=== PATIENT | female | born 1950 | race Caucasian/White ===

== ENCOUNTER → 2017-10-05 07:39 | Outpatient (CLI) | payer MEDICARE, OTHER, SELFPAY ==
[2017-10-05 09:00] LABS: Cholesterol 210 mg/dL (140-199); HDL Cholesterol 57 mg/dL (40-60); LDL Cholesterol Calculated 122 mg/dL (<100); Triglycerides 154 mg/dL (35-150)
== END ==
PROVIDERS: PCP Internal Medicine; Visit Provider Internal Medicine
DX: E78.5 Hyperlipidemia, unspecified (principal)
CPT/HCPCS: 36415; 80061

== ENCOUNTER 2018-04-03 07:12 | Day surgery (SDC) | payer MEDICARE, OTHER, SELFPAY ==
--- NOTE | 2018-04-03 | PATH_ITS ---
[facility] Accession Number: [id number] . 01 Material submitted: . RECTAL POLYP . 02 Diagnosis: Rectum, Polyp, Biopsy: Tubular adenoma. MRV/04/04/2018 . 02 Electronically signed: . Blanca Herrera MD, Pathologist NPI- [id number] . 01 Gross description: . Received one formalin-filled container labeled with the patient's name and labeled rectal polyp. The specimen consists of a 0.3 cm portion of tissue, entirely submitted in one cassette. (DC:[id number]) /FRR . 02 Pathologist provided ICD-10: D12.8 . 02 CPT . 685640 Performed at: 01 [facility] [place] [address] [id number] MD Seven Goff MD Phone: [phone] Performed at: 02 [facility] [place] [address] [place], [place] [id number] MD Blanca Herrera MD Phone: [phone]
[2018-04-03 07:30] VITALS: BP 108/74; PULSE 87; RESP 16; TEMP 36.9; O2SAT 94; BMI 27.4
--- NOTE | 2018-04-03 07:38 | PM.HP.1 ---
History of Present Illness Date Patient Seen: 04/03/18 Chief complaint: [id number] Colonscopy Narrative: 67-year-old female average risk for colon cancer here for repeat screening. Last colonoscopy performed 2005 in [place] Patient History Surgical History History of tonsillectomy Family History Father Heart disease High cholesterol Mother Stroke Social History household members: none Family & Social History Family History Father Heart disease High cholesterol Mother Stroke Meds Home Medications Medication Instructions Recorded Confirmed Type diazepam [Valium] 5 mg PO PRN PRN #30 tab 08/11/16 Rx aspirin #0 06/07/17 History calcium carbonate [Tums Freshers] #0 06/07/17 History multivitamin [Multiple Vitamins] #0 06/07/17 History omega 0-wnv-ptp-fish oil [Fish Oil] #0 06/07/17 History Allergies Allergy/AdvReac Type Severity Reaction Status Date / Time No Known Allergies Allergy Uncoded 06/13/17 12:39 Exam Narrative Exam Narrative: General: Patient is well developed, not in apparent distress Cardiovascular: Regular rate and rhythm, no murmurs, rubs, or gallops; no evidence of edema; no palpable abdominal aortic aneurysm Gastrointestinal: Normoactive bowel sounds, soft, nontender, nondistended, no rebound tenderness, no hepatosplenomegaly, no evidence of hernia Assessment & Plan Plan: Assessment/Plan Narrative: 67-year-old female average risk for colon cancer here for repeat screening. Last colonoscopy performed 2005 Regarding the procedure(s), the risks and potential complications, benefits, and alternatives (including not doing the procedure) were discussed with the patient. The risks include but are not limited to bleeding, splenic injury, infection, perforation which may require surgical intervention, missed lesions, and adverse reactions to sedative medicines. After a question and answer period, the patient agreed to proceed with the procedure(s) and gives informed consent.
[2018-04-03] MEDS: SODIUM CHLORIDE 0.9% 1,000 ML 70 ML IV (07:39)
--- NOTE | 2018-04-03 08:22 | PM.OP.ENDO ---
Operative Date/Time/Diagnoses Date of procedure: 04/03/18 Procedure Notes Procedure in detail: Surgeon: Lai Chung MD Procedure: Colonoscopy with polypectomy Preoperative diagnosis: Average risk colon cancer screening; prior colonoscopy 2005 Postoperative diagnosis: Rectal polyp, grade 2 internal hemorrhoids Medications: Conscious sedation using 5 mg IV of Midazolam and 150 mcg IV of Fentanyl Preanesthesia Assessment An H and P was performed/updated and the Px?s ASA class is 1. The procedure was discussed in detail with the patient. The potential risks and complications including infection, bleeding, missed lesions, perforation, need for surgery in case of perforation, prolonged hospital stay, and were explained. A brief question and answer period was allotted and once all questions were answered, informed consent was obtained. The patient was brought back to the procedure room and placed on standard monitoring. The patient?s vital signs were monitored continuously throughout the entire procedure. Prior to starting, a timeout was performed to confirm the patient?s identity, allergies, medications, and procedure. Procedure in detail The patient was placed in left lateral decubitus position and once adequate sedation was obtained a JORGE was performed. The digital rectal examination did not reveal any palpable lesions. The tip of the colonoscope was placed in the anal canal and advanced all the way to the cecum which was identified by the appendiceal orifice and the ileocecal valve. There was note looping in the sigmoid colon which was rectified by scope torsion and external pressure. Careful examination of all kaye of the colon was performed with irrigation of any residual stool. In the rectum there was note of a 4 mm sessile polyp which was removed by means of a cold snare. Resection and retrieval were complete with minimal bleeding. Retroflexion was performed in the rectum which revealed grade 2 internal hemorrhoids The patient tolerated the procedure well and will be brought back to the recovery area to be discharged once criteria are met. The prep was judged to be good/excellent and adequate to identify polyps less than 5 mm. The withdrawal time was 8. The total physician intraservice time was 23 min. Complications There were no complications and estimated blood loss was minimal. Recommendations: Resume previous diet Continue outPx medications Follow up pathology results Repeat colonoscopy in 5 or 10 years depending on pathology results An emergency contact number was given to the patient for any complications related to the procedure
[2018-04-03] MEDS: fentaNYL 250 MCG/5 ML INJ IV (08:23)
[2018-04-03] MEDS: MIDAZOLAM 5 MG/5 ML VIAL IV (08:24)
--- NOTE | 2018-04-03 08:27 | PM.DS.1 ---
History of Present Illness Chief complaint: [id number] Colonscopy Narrative: 67-year-old female average risk for colon cancer here for repeat screening. Last colonoscopy performed 2005 in [place] Discharge Providers Primary care physician: Robyn Valdez MD Discharge provider: Lai Chung MD Discharge Date: 04/03/18 Exam Vital Signs (past 8 hours): - 04/03/18 07:30 Temperature 98.4 F Pulse Rate 87 Respiratory Rate 16 Blood Pressure 108/74 Pulse Oximetry 94 Oxygen Delivery Method Room Air Narrative Exam Narrative: General: Patient is well developed, not in apparent distress Cardiovascular: Regular rate and rhythm, no murmurs, rubs, or gallops; no evidence of edema; no palpable abdominal aortic aneurysm Gastrointestinal: Normoactive bowel sounds, soft, nontender, nondistended, no rebound tenderness, no hepatosplenomegaly, no evidence of hernia Discharge Plan Discharge Plan Patient Disposition: Home Discharge Med Rec/Prescriptions Prescriptions: Continue diazepam [Valium] 5 MG tablet 5 mg PO PRN PRNQty: 30 RF: 0 multivitamin [Multiple Vitamins] 1 EACH tablet Qty: 0 RF: 0 aspirin 81 MG tablet,delayed release (DR/EC) Qty: 0 RF: 0 calcium carbonate [Tums Freshers] 200 MG tablet,chewable Qty: 0 RF: 0 omega 7-vwv-mkz-fish oil [Fish Oil] 1,000 MG capsule Qty: 0 RF: 0 Discharge Orders: Discharge (Order); Ordered 04/03/18 Ordered By: Lai Chung Provider Discharge Instructions Diet: Diet as Tolerated Visit Report/Discharge Packet Stand Alone Forms: Surgery Discharge Discharge Data Primary Care Provider: Robyn Valdez Attending Provider: Lai Chung
[2018-04-03 08:29] VITALS: BP 90/62; PULSE 77; RESP 14; TEMP 36.9; O2SAT 95
--- NOTE | 2018-04-03 08:32 | SUR.PHASEII ---
abdomen soft non tender to palpation.
[2018-04-03 08:34] VITALS: BP 97/66; PULSE 74; RESP 14; O2SAT 93
[2018-04-03 08:42] VITALS: BP 104/69; PULSE 94; RESP 14; O2SAT 95
== END 2018-04-03 08:57 | disposition home or self-care (01) ==
PROVIDERS: Family Provider Internal Medicine; PCP Internal Medicine; Visit Provider Internal Medicine Gastroenterology
PROC: 0DJD8ZZ Inspection of Lower Intestinal Tract, Via Natural or Artificial Opening Endoscopic (ICD-10-PCS; CPT 45378; principal; 2018-04-03 08:00)
DX: Z12.11 Encounter for screening for malignant neoplasm of colon (principal); K64.1 Second degree hemorrhoids; D12.8 Benign neoplasm of rectum
CPT/HCPCS: 45385; J2250; J3010

== ENCOUNTER → 2018-04-09 08:36 | Outpatient (CLI) | payer MEDICARE, OTHER, SELFPAY ==
--- NOTE | 2018-04-09 | DI.US.S_ITS ---
PROCEDURE: US ABD AORTA ANEURYSM SCREEN INDICATIONS: SCREENING TECHNIQUE: Real time scanning was performed of the aorta and iliac arteries, with image documentation. COMPARISON: None. FINDINGS: Aorta: Proximal aortic diameter measures 1.8 cm. Mid-aorta measures 1.5 cm. Distal aortic diameter is 1.4 x 1.6 cm. minimal plaque in the distal aorta Iliac arteries: Right common iliac artery measures 1.0 cm. Left common iliac artery measures 1.2 cm. IMPRESSION: Negative examination. No evidence for aneurysm. Dictated by: Felix Booker M.D. on 04/09/2018 at 11:28 Approved by: Felix Booker M.D. on 04/09/2018 at 11:43
--- NOTE | 2018-04-09 | DI.MG.S_ITS ---
BILATERAL DIGITAL SCREENING MAMMOGRAM 3D/2D WITH CAD: 04/09/2018 CLINICAL: Routine screening. Family history of breast cancer. Comparison is made to exam dated: 11/23/2016 mammogram - [facility]. There are scattered fibroglandular elements in both breasts. Current study was also evaluated with a Computer Aided Detection (CAD) system. No significant masses, calcifications, or other findings are seen in either breast. There has been no significant interval change. IMPRESSION: NEGATIVE There is no mammographic evidence of malignancy. A 1 year screening mammogram is recommended. This exam was interpreted at Station ID: [id number]. NOTE: For mammograms, a report in lay terms will be sent to the patient. Approximately 15% of breast malignancies will not be visualized mammographically. In the management of a palpable breast mass, a negative mammogram must not discourage biopsy of a clinically suspicious lesion. Electronically Signed By: Evans beltran/jesus:04/09/2018 11:23:11 letter sent: Normal Exam ACR BI-RADS Category 1: Negative [id number]
== END ==
PROVIDERS: Family Provider Internal Medicine; PCP Internal Medicine; Visit Provider Internal Medicine
DX: Z12.31 Encounter for screening mammogram for malignant neoplasm of breast (principal); Z80.3 Family history of malignant neoplasm of breast; M85.852 Other specified disorders of bone density and structure, left thigh; Z78.0 Asymptomatic menopausal state; Z13.6 Encounter for screening for cardiovascular disorders; Z82.62 Family history of osteoporosis; Z87.891 Personal history of nicotine dependence
CPT/HCPCS: 76706; 77063; 77067; 77080

== ENCOUNTER → 2020-12-08 09:00 | Outpatient (CLI) | payer MEDICARE, OTHER, SELFPAY ==
--- NOTE | 2020-12-08 | DI.MG.S_ITS ---
BILATERAL DIGITAL SCREENING MAMMOGRAM 3D/2D WITH CAD: 12/08/2020 CLINICAL: Routine screening. Family history of breast cancer. Comparison is made to exams dated: 04/09/2018 mammogram and 11/23/2016 mammogram - [facility]. There are scattered fibroglandular elements in both breasts. Current study was also evaluated with a Computer Aided Detection (CAD) system. No significant masses, calcifications, or other findings are seen in either breast. There has been no significant interval change. IMPRESSION: NEGATIVE There is no mammographic evidence of malignancy. A 1 year screening mammogram is recommended. This exam was interpreted at Station ID: [id number]. NOTE: For mammograms, a report in lay terms will be sent to the patient. Approximately 15% of breast malignancies will not be visualized mammographically. In the management of a palpable breast mass, a negative mammogram must not discourage biopsy of a clinically suspicious lesion. Electronically Signed By: Seven stallings/jesus:12/08/2020 10:10:53 letter sent: Normal Exam ACR BI-RADS Category 1: Negative 3341F
== END ==
PROVIDERS: Family Provider Internal Medicine; PCP Internal Medicine; Referring Provider Internal Medicine; Visit Provider Internal Medicine
DX: Z12.31 Encounter for screening mammogram for malignant neoplasm of breast (principal); Z80.3 Family history of malignant neoplasm of breast
CPT/HCPCS: 77063; 77067

== ENCOUNTER → 2021-01-05 12:12 | Outpatient (CLI) | payer MEDICARE, OTHER, SELFPAY ==
[2021-01-05 13:42] LABS: Add Manual Diff / Slide Review NO; Basophils Absolute Auto 100 /uL (0-100); Basophils Percent Auto 0.9 % (0-2); Eosinophils Absolute Auto 100 /uL (0-450); Eosinophils Percent Auto 2.2 % (2-4); Hematocrit 41.4 % (36-46); Lymphocytes Absolute Auto 1600 /uL (1100-4500); Lymphocytes Percent Auto 28.4 % (25-40); Mean Corpuscular HGB Conc 33.7 % (30-36); Mean Corpuscular Hemoglobin 28.9 PG (26-34); Mean Corpuscular Volume 85.8 fL (80-100); Monocytes Absolute Auto 400 /uL (0-900); Neutrophils Absolute Auto 3400 /uL (1500-7000); Neutrophils Percent Auto 61.5 % (50-75); Platelet Count 297 X10^3/uL (150-400); Red Blood Cell Count 4.83 X10^6/uL (4.0-5.2); Red Cell Distribution Width 13.9 % (11.6-14.8); White Blood Cell Count 5.5 X10^3/uL (4.5-11.0)
[2021-01-05 13:54] LABS: Hemoglobin A1C% w Est Avg Glu 5.5 % (4.0-6.0)
[2021-01-05 14:02] LABS: BUN Creatinine Ratio 17.5 (6-22); Blood Urea Nitrogen 14 mg/dL (7-17); Calcium 10.1 mg/dL (8.4-10.2); Carbon Dioxide 27 mmol/L (22-32); Chloride 100 mmol/L (98-107); Estimated Glomerular Filt Rate > 60.0 mL/min (>60); Glucose 91 mg/dL (80-110); HEMOLYSIS < 15 (0-50); Potassium 4.6 mmol/L (3.4-5.1); Sodium 137 mmol/L (137-145)
[2021-01-05 15:48] LABS: Appearance Urine UA CLEAR; Bilirubin Urine UA NEGATIVE (NEGATIVE); Color Urine UA YELLOW; Glucose Urine UA NEGATIVE (Negative); Ketones Urine UA NEGATIVE (NEGATIVE); Leukocyte Esterase Urine UA NEGATIVE (NEGATIVE); Nitrite Urine UA NEGATIVE (Negative); Occult Blood Urine UA NEGATIVE (Negative); Protein Urine UA NEGATIVE (Negative); Specific Gravity Urine UA 1.015 (1.000-1.035); Urobilinogen Urine UA 0.2 E.U./dL (0.2)
[2021-01-05 16:00] LABS: Bacteria Urine None Seen; Culture Indicated Urine Cult Not Indicated; RBC Urine None Seen (0-5/HPF); Squamous Epithelial Cell Urine 0-1 /HPF (0-5/HPF); Transitional Epi Cells Urine 0-1/HPF (0-5/HPF); WBC Urine None Seen (0-5/HPF)
== END ==
PROVIDERS: Family Provider Internal Medicine; PCP Internal Medicine; Referring Provider Orthopaedic Surgery; Visit Provider Orthopaedic Surgery
DX: Z01.818 Encounter for other preprocedural examination (principal); R73.9 Hyperglycemia, unspecified; Z01.812 Encounter for preprocedural laboratory examination; N39.0 Urinary tract infection, site not specified
CPT/HCPCS: 36415; 80048; 81001; 83036; 85025; 93005

== ENCOUNTER → 2021-02-09 11:31 | Outpatient (CLI) | payer MEDICARE, OTHER, SELFPAY ==
[2021-02-09 14:39] LABS: COVID19 -Nasal RAPID Negative (Negative)
== END ==
PROVIDERS: Family Provider Internal Medicine; PCP Internal Medicine; Visit Provider Physician Assistant
DX: Z20.822 Contact with and (suspected) exposure to COVID-19 (principal)
CPT/HCPCS: 87635; C9803

== ENCOUNTER 2021-02-11 06:23 | Day surgery (SDC) | payer MEDICARE, OTHER, SELFPAY ==
[2021-02-02 12:52] VITALS: BMI 27.4
[2021-02-11] VITALS (12 sets, daily range): BP systolic 97–109; BP diastolic 44–73; PULSE 78–97; RESP 10–20; TEMP 36.2–37.4; O2SAT 93–97; BMI 27.4
--- NOTE | 2021-02-11 06:00 | DI.RAD.S_ITS ---
PROCEDURE: XR HIP W PEL IF DONE LT 2V INDICATIONS: LEFT TOTAL HIP TECHNIQUE: 4 fluoroscopic images of the left hip. COMPARISON: [facility], RONDA, XR HIP W PEL IF DONE LT 2V, 02/11/2021, 10:32. FINDINGS: Bones: Patient is status post left hip arthroplasty. The hip joint appears congruent. The visualized bony structures appear intact. Soft tissues: Overlying postoperative changes are noted. IMPRESSION: No significant abnormality. Dictated by: Kendrick North M.D. on 02/11/2021 at 11:17 Approved by: Kendrick North M.D. on 02/11/2021 at 11:19
[2021-02-11] MEDS: VANCOMYCIN 1,000 MG/200 ML PIGGYBACK 200 MG IV (07:14)
[2021-02-11] MEDS: LACTATED RINGERS 1,000 ML 42 ML IV ×2 (07:15→09:26)
--- NOTE | 2021-02-11 07:40 | P.OP_ITS ---
Operative Date/Time/Diagnoses Date of procedure: 02/11/21 Time of procedure: 08:00 Pre-op diagnosis: left hip OA Post-op diagnosis: same Procedure & Clinicians Procedure: Left total hip arthroplasty anterior approach Same procedure as scheduled: Yes Indications: The patient has had progressively worsening left hip pain with radiographic rush ges consistent with arthritis. Non-operative management has failed and the patient has requested total hip replacement. The risks, benefits and alternatives to surgery were discussed with the patient prior to proceeding. Risks discussed included, but were not limited to, failure to relieve pain, leg length discrepancy, dislocation, stiffness, infection, nerve damage, deep venous thrombosis, pulmonary embolism, stroke, coma, heart attack, permanent paralysis and , as well as the potential need for eventual revision of the prosthetic. Surgeon: Jackelin Alonzo Senior Infrastructure Architect: Henrry Manzanares Anesthesia Type: General and Spinal Operative Notes Findings: Alonzo and Nephew R3 48mm, anthology SO 5, -3 oxinium, neutral 32mm poly, one 6.5mm by 15mm screw Closure Type: primary Specimen(s): none sent Prosthetic devices, grafts, tissues, transplants, or devices: Alonzo and Nephew R3 48 mm, anthology standard offset 5, -3 Oxinium head, neutral 32 mm poly liner, one 6.5 x 15 mm screw Estimated Blood Loss (mL): 250 Blood products transfused: none Procedure in detail: The patient was brought to the operating room. Patient was carefully positioned in the supine position. Time-out was performed and antibiotics were given. Anesthesia was induced. She was positioned in the on the table in order to allow hyperextension of the hip. The left lower extremity was prepped and draped in a standard sterile fashion. An anterior left hip incision was made 1 fingerbreadth lateral to the anterior superior iliac spine and extended distally towards the greater trochanter. Dissection was carried out through skin and subcutaneous tissues. Superficial hemostasis was achieved. The fascia over the tensor fascia jayesh was defined and incised with a knife. Two Allis clamps were used to grasp the fascia. Tensor fascia jayesh was retracted laterally. A gelpi retractor was placed. Dissection was carried out down along the neck. The circumflex vessels were carefully identified and cauterized with the Aqua Mantis. There was good visualization of the femoral neck. A Cobra was placed superior to the neck and the gluteus fibers were carefully stripped from that superior aspect of the capsule. A 2nd retractor was placed along the inferior aspect of the neck. The rectus insertion along the capsule was partially released. A 3rd retractor that was then gently placed over the rim of the acetabulum under the rectus. Capsule was carefully incised and released from the intertrochanteric line circumferentially superior to the mid sagittal line and inferiorly to the mid sagittal line until the lesser trochanter was palpable. A tag stitch was placed both in the superior and inferior limb of the capsular insertion. Along the acetabulum capsule was also released up to the mid sagittal 12:00 position. A portion of the labrum was resected. A saw was used to perform an osteotomy at the level of the intertrochanteric line and the junction of the superior femoral neck leaving approximately 1 finger breath of residual inferior neck above the lesser trochanter. A 2nd cut was made along the femoral neck at the base of the head and a napkin ring of neck was removed. Corkscrew was placed in the femoral head and the head was removed without difficulty. Retractors were then repositioned around the acetabulum. Residual labrum was resected and additional osteophytes were removed. A reamer that was 4 mm below the templated size was placed by hand in the acetabulum and it was reamed to centralize the acetabulum. It was then reamed up to 2 under the templated size and fluoroscopy was brought in to confirm the position of the reaming and depth of reaming. I reamed 1 under the anticipated size and touched the rim with line to line reaming. A trial cup was placed and noted that it was appropriately sized and fluoroscopy confirmed position and depth. The component was open and inserted without difficulty fluoroscopic imaging was used to confirm that the cup had been adequately seated and was well positioned. It was further stabilized with a screw. Neutral poly liner was placed. The cup was tested and noted to be stable. Attention was then directed to the femur. The femur was gently hyperextended additional capsular release was performed as needed in order to allow adequate visualization of the proximal femur with elevation of the femur. Patient was placed in a hyperextended slightly adducted position with maximum external rotation. Box osteotome was used to check for any residual neck as well as sclerotic bone along the trochanter. Jewett pepper was placed in the femur. Additional broaching was performed. Canal finder was used to determine the alignment of the canal and position. Size 1 broach was placed. The canal was then appropriately broached up to the templated size as long as there was adequate stability of the broach and serial advancement of the broach without excessive impingement. Specific attention was directed at avoiding varus attempting to direct the distal aspect of the broach more anteriorly and avoiding excessive anteversion. Trial reduction showed acceptable range of motion, good stability, no posterior impingement, mu-ism of leg length and appropriate lateral shuck. I also hyperflexed the hip and checked that there was no impingement anteriorly and there was good stability with flexion, adduction and internal rotation. Marcaine and Exparel were injected. The stem was placed without difficulty. Re peat trial reduction and x-ray showed acceptable overall position, length, and no evidence of the femoral fracture. Final head was placed. Wound was meticulously irrigated with normal saline. The hip was reduced and additional Exparel and Marcaine were injected. The capsule was closed with interrupted nonabsorbable sutures. The fascia of the tensor was closed with interrupted and running Vicryl. No drain was placed. Any tensor fascia jayesh muscle that appeared to be contused or injured which was a minimal amount was carefully resected. Capsule around the tensor was injected with Exparel and Marcaine. The skin was closed with barbed stitches for the subcutaneous tissue and skin. We also used surgical glue. The wound was dressed sterilely. It was meticulously irrigated with normal saline. Patient was transferred to recovery room in satisfactory condition. Complications: none Post-operative Condition: stable Disposition: Acute Care Plan for aftercare: The patient will be maintained on a standard total hip replacement protocol with weight bearing as tolerated and anterior hip precautions. The patient will receive Aspirin and sequential compression devices for DVT prophylaxis. The patient will be discharged home when safe for the home environment.
--- NOTE | 2021-02-11 07:40 | PM.PREOP ---
Pre-operative Note COVID-19 COVID-19 status: Negative Interval Note History & Physical reviewed/Exam performed by Physician: Yes Changes to H&P: No
--- NOTE | 2021-02-11 08:00 | DI.RAD.S_ITS ---
PROCEDURE: XR HIP W PEL IF DONE LT 2V INDICATIONS: Hip arthroplasty TECHNIQUE: AP pelvis and lateral view of the left hip acquired. COMPARISON: [facility], [place], XR HIP W PEL IF DONE LT 2V, 02/11/2021, 10:49. [facility], CR, XR PELVIS WITH LATERAL HIP LEFT, 01/05/2021, 9:54. FINDINGS: Bones: Patient is status post left hip arthroplasty, with hardware components in expected positions. The hip joint appears congruent. The visualized bony structures appear intact. Soft tissues: Overlying postoperative changes are noted. No suspicious soft tissue densities. IMPRESSION: 1. Expected postsurgical changes status post left hip arthroplasty. Dictated by: Seven Cruz M.D. on 02/11/2021 at 12:00 Approved by: Seven Cruz M.D. on 02/11/2021 at 12:02
[2021-02-11] MEDS: TRANEXAMIC ACID 1,000 MG VIAL 2000 MG INJ ×2 (08:09→10:05)
[2021-02-11] MEDS: CEFAZOLIN 2 GM/20 ML SYRINGE IV ×2 (08:10→17:06)
--- NOTE | 2021-02-11 08:28 | SUR.OPER ---
Supine on padded [place] table with bilateral legs secured in padded positioning boots and suspended in positioning spars, operative leg in traction per surgeon. Head on one pillow. Arm on non-operative side secured on padded armboard <90 degrees abduction. Arm on operative side padded and resting across chest then secured with tape over sheet. Padded perineal post in place per surgeon.
[2021-02-11] MEDS: BUPIVACAINE 0.25% (PF) 60 ML, EPINEPHrine 0.3 MG INJ (08:37)
[2021-02-11] MEDS: BUPIVACAINE LIPOSOME 266 MG/20 ML VIAL INJ (08:37)
--- NOTE | 2021-02-11 10:37 | SUR.PHASEI ---
Patient to PACU after general anesthesia and duramorph spinal. Pt awake and alert and denies pain.
--- NOTE | 2021-02-11 11:17 | SUR.PHASEI ---
Patient transferred to room 204 by Ana MONTOYA. Pt tolerating coffee. Alert oriented and denies pain. Transferred iwth belongings and walker.
--- NOTE | 2021-02-11 11:18 | SUR.PHASEI ---
Patient transferred to room 204 in stretcher by Ana MONTOYA. SBAR report to Vaishnavi MONTOYA. Pt alert, oriented, denies pain and tolerating coffee. Belongings bag and walker sent with patient.
[2021-02-11] MEDS: LACTATED RINGERS 1,000 ML 125 ML IV (12:23)
--- NOTE | 2021-02-11 13:05 | PT.IIE ---
Current Diagnoses Unilateral primary osteoarthritis, left hip (02/11/21) Surgery Performed Operation Date: 02/11/21 07:45 Actual Procedures p Total Hip Arthroplasty/Anterior Approach(Left) - Jackelin Alonzo MD Surgical History (Last Updated 02/08/21 @ 13:17 by Felicia Johnson, RN) History of tonsillectomy Medical History (Last Updated 02/08/21 @ 13:23 by Felicia Johnson, RN) Anxiety Depression Elevated cholesterol Fibromyalgia Hearing impaired High blood pressure Neuropathy Osteoarthritis Pre-diabetes Rectocele Physical Therapy Inpatient Evaluation/Re-Eval M1 PT/OT-IP Prior Functional Status Start: 02/11/21 14:44 Freq: NEEDED Status: Active Protocol: Document 02/11/21 13:05 AB (Rec: 02/11/21 15:07 AB [email or web address]) Medical Review Prior Functional Status Medical History Reviewed Yes Communication able to make needs known Mobility and Gait pt stated that she is independent with all mobilities and ambulation without AD Social History Household Members none Living Arrangements House Number of Floors (Floors) One Floor Number of Stairs To Enter/Railing? 2 steps without rails to enter Home Environment High Toilet,Walk in Shower Home Equipment Front Wheel Walker,Straight Cane,Raised Toilet Seat w/ Armrests,Hand Held Shower Additional Social History Comment pt's friend Deb will stay and assist pt at home M2 PT-IP Current Condition Start: 02/11/21 14:44 Freq: NEEDED Status: Active Protocol: Document 02/11/21 13:05 AB (Rec: 02/11/21 15:07 AB [email or web address]) Physical Therapy Current Condition Current Condition Evaluation Date 02/11/21 Treatment Diagnosis s/p L MJ anterior approach; difficulty in walking Onset Date 02/11/21 M3 PT-IP Subjective Start: 02/11/21 14:44 Freq: NEEDED Status: Active Protocol: Document 02/11/21 13:05 AB (Rec: 02/11/21 15:07 AB [email or web address]) Subjective Physical Therapy Visit Type Type Initial Evaluation Visit Start Time 13:05 Visit Stop Time 14:25 Total Visit Minutes 80 Number of AUCTION BLOCK CLERK Visits 0 Physical Therapy Visit Comments Patient Comments able to make needs known Therapy Pain Assessment Pain Present Pain Present Denied Pain M4 PT-IP Mobility and Gait Start: 02/11/21 14:44 Freq: NEEDED Status: Active Protocol: Document 02/11/21 13:05 AB (Rec: 02/11/21 15:07 AB [id number]) PT-Bed Mobility Assessment Supine to Sit Supine to Sit Standby Assistance Sit to Supine Sit to Supine Standby Assistance PT-Transfer Assessment Sit to and From Stand Sit to and from Stand Maximum Assistance,1 Person Assistance,2 Person Assistance ,Use of Upper Extremities Equipment Transfer Assistive Device Gait Belt,Front Wheeled Walker Orthotic/Prosthetic Devices or Brace: No Transfers Transfer Destination Chair,Bedside Commode Transfer Technique ambulated Transfer Ability Level of Assist Maximum Assistance,1 Person Assistance,2 Person Assistance ,Use of Upper Extremities Comments Mobility Comments educated pt in anterior hip precautions. pt asking to use the toilet if possible and wants to try to sit up on the chair. BP in supine: 95/63 completed supine to sit SBA. c/o dizziness initially. BP 120/70 pt was able to sit for ~ 3 min and BP checked again: 119/69. attempted sit to stand but pt unable despite max A. stated that LLE feels weird but when assessed and asked while pt was still supine in bed, stated that she has full sensation back and was able to feels light touch and able to move LE as directed. informed pt that PT will have bedside commode positioned next to her for safety instead of walking to the toilet since pt was asking to use the toilet prior to mobility. Pt stated that she does not need to use the toilet but needs to move. PT asked for assistance for safety. AUCTION BLOCK CLERK came in to assist . pt attempted sit to stand again max A x 2 and max cues for L quads activation. ambulated using FWW max A x 2 with initial few steps and then max A with max cues. pt is easily distracted. (+) L knee buckling during ambulation requiring max A for stability. AUCTION BLOCK CLERK left. positioned pt on the chair. pt then stated that she needs to use the toilet. informed pt that PT will have bedside commode next to her for safety since L knee is giving out on her. Pt was not too happy but agreed. positioned bedside commode. completed sit to stand max A and max cues. pt then stated that pee is coming out midway during transfer and L knee buckled again and PT has to assist pt back on chair max A. Asked for assistance again. Asked AUCTION BLOCK CLERK to come assist. pt completed sit to stand max A x 2 and max cues. step transfer using FWW max A and max cues. positioned chair next to pt but pt stated that now she wants to go back to bed. completed sit to stand from bedside commode. able to maintain standing balance using FWW max A while AUCTION BLOCK CLERK assisted with brief management . pt required max Ax 2 and max cues ambulated 5 ft using FWW max A x 2 and max cues. max cues to maintain hip precautions. pt completed sit to supine SBA. positioned pt in bed. call light and table placed within reach. caregiver training set up for tomorrow 02/12 at 930 am. Gait Assessment Gait Gait Assistance Required: Maximum Assistance,1 Person Assist,2 Person Assist Distance (Feet) 12 Able to Maintain Weight Bearing Status Yes During Gait Assistive Devices Assistive Device Gait Belt,Front Wheeled Walker Orthotic/Prosthetic Devices or Brace: No Gait Deviations General Gait Pattern Decreased Stride Length, Decreased Feet Clearance Factors Limiting Gait Function Factors Limiting Gait Function Decreased Activity Tolerance, Decreased Sensation,Decreased Strength,Difficulty Following Directions,Limited Range of Motion,Pain,Poor Balance,Poor Safety Awareness PT-Balance Assessment Sitting Balance and Reactions Static Sitting Balance Ability Good Dynamic Sitting Balance Ability Good Standing Balance and Reactions Static Standing Balance Ability Poor Dynamic Standing Balance Ability Poor Device Used FWW M5 PT-IP Objective Assessments Start: 02/11/21 14:44 Freq: NEEDED Status: Active Protocol: Document 02/11/21 13:05 (Rec: 02/11/21 15:07 [email or web address]) Orientation Orientation/Cognition Level of Alertness Alert Orientation Name Language Function Ability Hard of Hearing Safety Awareness Decreased Safety Awareness Memory Description Short Term Impaired Gross Range of Motion Lower Extremity ROM Assessment Within Functional Limits Strength Lower Extremity Strength Assessment Left Impaired Hip 3+/5 Knee 3+/5 Sensation Assessment Comments Sensation Comments c/o numbness/tingling on LLE M6 PT-IP Treatment Start: 02/11/21 14:44 Freq: NEEDED Status: Active Protocol: Document 02/11/21 13:05 AB (Rec: 02/11/21 15:07 [email or web address]) Physical Therapy Treatment Education Education Provided Precautions,Weight Bearing Status,Post-Op Packet,Safety M7 PT-IP Assessment and Plan Start: 02/11/21 14:44 Freq: NEEDED Status: Active Protocol: Document 02/11/21 13:05 AB (Rec: 02/11/21 15:07 AB [id number]) PT Summary Assessment and Plan Potential Rehabilitation Potential Fair Status of Condition at Evaluation Evolving Summary Impairments Pain,ROM,Strength,Balance, Coordination,Sensation,Tone, Cognition,Bed Mobility, Transfers,Gait,Activity Tolerance Assessment Summary pt s/o L MJ anterior approach POD 0. pt is needing max A x 2 with mobility with L knee buckling. pt also gets easily distracted and has decrease safety awareness and requires cues to maintain hip precautions. Caregiver training set up for tomorrow at 930 am. will continue to assess mobility to determine safe d/c plan. pt also needs to be able to safely complete stair climbing . Goals Bed Mobility Goal Standby Assistance Transfer Goal Standby Assistance,Front Wheeled Walker Gait Goal Standby Assistance,Front Wheel Walker Gait Distance 200 Other Goals up/down 2 steps using SPC/CHILD NUTRITION ASSISTANT CGA Days to Meet Goals 10 Frequency of Treatment Frequency Of Treatment Twice a Day Treatment Plan Physical Therapy Treatment Plan Bed Mobility Training,Transfer Training,Gait Training, Therapeutic Exercise,Balance Retraining,Post Op Education, Discharge Planning,Hot or Cold Pack,Neuromuscular Re-ed, Coordination Retraining,Manual Therapy Precautions Anterior Hip Precautions No Hip Extension,No Hip External Rotation Weight Bearing Status Weight Bearing Status Weight Bear as Tolerated Allowed Weight Bearing Amount (enter % LLE WBAT or #) (%) Recommendations To Nursing Amount of Assist Needed 2 Person Assist Discharge Recommendations PT Discharge Recommendations Home with 25/09 Assist Available,Home Health,SNF Rehab,Home vs SNF Transportation Needs at Discharge Private Vehicle,Wheelchair/ Cabulance
[2021-02-11] MEDS: ASPIRIN EC 81 MG TABLET PO (20:26)
[2021-02-11] MEDS: ACETAMINOPHEN 325 MG TABLET 650 MG PO (20:26)
[2021-02-11] MEDS: DOCUSATE 100 MG CAPSULE PO (20:26)
[2021-02-12] MEDS: CEFAZOLIN 2 GM/20 ML SYRINGE IV (00:19)
[2021-02-12] MEDS: LACTATED RINGERS 1,000 ML 125 ML IV (00:25)
[2021-02-12 00:28] VITALS: BP 102/64; PULSE 80; RESP 16; TEMP 37.4; O2SAT 96
[2021-02-12] MEDS: OXYCODONE IR 5 MG TABLET PO ×3 (02:13→12:43)
[2021-02-12] MEDS: ONDANSETRON 4 MG/2 ML INJ IV (02:13)
[2021-02-12 05:01] VITALS: BP 117/64; PULSE 74; RESP 19; TEMP 36.4; O2SAT 96
[2021-02-12 06:18] LABS: Hematocrit 30.6 % (36-46); Hemoglobin 10.6 g/dL (12.0-16.0)
[2021-02-12 07:30] VITALS: BP 119/64; PULSE 87; RESP 18; TEMP 37.6; O2SAT 95
[2021-02-12] MEDS: ASPIRIN EC 81 MG TABLET PO (08:21)
[2021-02-12] MEDS: DOCUSATE 100 MG CAPSULE PO (08:21)
[2021-02-12] MEDS: ACETAMINOPHEN 325 MG TABLET 650 MG PO (08:22)
[2021-02-12] MEDS: ONDANSETRON 4 MG ODT PO (08:23)
--- NOTE | 2021-02-12 09:59 | PM.DS.1 ---
History of Present Illness History of Present Illness Date Patient Seen: 02/12/21 Time Patient Seen: 09:59 Chief complaint: Left hip pain s/p left MJ Narrative: Patient is complaining of mild left hip pain this morning. Her is her nausea has resolved. No new numbness or tingling. No fevers, chills, night sweats. Overall she is feeling well and like to be discharged home. Discharge Providers Provider Discharge Date: 02/12/21 Primary care physician: Eladio Beckett MD Consults: 02/11/21 06:00 Consult to Anesthesiology Routine Comment: Consulting Provider: Anesthesiologist Reason for consultation: Regional block for post operative pain control 02/11/21 11:16 Consult to Discharge Planning Routine Comment: Consult to Physical Therapy Evaluate & Treat Comment: Physician Instructions: post op MJ protocol Consult to Respiratory Therapy Evaluate & Treat Comment: Physician Instructions: Evaluate and treat Discharge provider: Pilar Gibbs PA-C Summary Hospital Course Discharge Diagnosis: Left hip OA Hospital Course: Date of procedure: 02/11/21 Time of procedure: 08:00 Procedure & Clinicians Procedure: Left total hip arthroplasty anterior approach Same procedure as scheduled: Yes Indications: The patient has had progressively worsening left hip pain with radiographic changes consistent with arthritis. Non-operative management has failed and the patient has requested total hip replacement. The risks, benefits and alternatives to surgery were discussed with the patient prior to proceeding. Risks discussed included, but were not limited to, failure to relieve pain, leg length discrepancy, dislocation, stiffness, infection, nerve damage, deep venous thrombosis, pulmonary embolism, stroke, coma, heart attack, permanent paralysis and , as well as the potential need for eventual revision of the prosthetic. Surgeon: Jackelin Alonzo Drafter (Cad) Electrical: Henrry Manzanares Anesthesia Type: General and Spinal Operative Notes Findings: Alonzo [employer] Nephew R3 48mm, anthology SO 5, -3 oxinium, neutral 32mm poly, one 6.5mm by 15mm screw Closure Type: primary Specimen(s): none sent Prosthetic devices, grafts, tissues, transplants, or devices: Alonzo [employer]hew R3 48 mm, anthology standard offset 5, -3 Oxinium head, neutral 32 mm poly liner, one 6.5 x 15 mm screw Estimated Blood Loss (mL): 250 Blood products transfused: none Status at Discharge Cognitive/behavioral status at discharge: oriented Functional status at discharge: uses cane/walker Overall status at discharge: patient is progressing back to baseline Exam Vital Signs (past 8 hours): - 02/12/21 05:01 02/12/21 07:30 Temperature 97.6 F 99.6 F Pulse Rate 74 87 Respiratory Rate 19 18 Blood Pressure 117/64 119/64 Pulse Oximetry 96 95 Oxygen Delivery Method Room Air Oxygen Flow Rate 0 Narrative Exam Narrative: Pleasant 70-year-old female, working with physical therapy standing at the sink brushing her teeth. Dressing is clean, dry, intact. Bilateral lower extremity motor function is grossly intact, sensation is grossly intact to light touch in calves are soft and nontender to palpation. Objective Labs Result Diagrams: 02/12/21 06:05 Labs: Laboratory Results - last 24 hr 02/12/21 06:05 Hgb 10.6 L Hct 30.6 L PFSH Medical History Anxiety Depression Elevated cholesterol Fibromyalgia Hearing impaired High blood pressure Neuropathy Osteoarthritis Pre-diabetes Rectocele Surgical History History of dilation and curettage History of tonsillectomy Hx of hernia repair (1987) Hx of LASIK Family History Father Heart disease High cholesterol Mother Stroke Social History household members: none Smoking Status: Former smoker alcohol intake: current Discharge Assessment & Plan Assessment and Plan Assessment: Stable status post left total hip arthroplasty, anterior approach Plan of Treatment: -mobilize with PT. Maintain anterior hip precautions x6 weeks -continue with current pain regimen and DVT prophylaxis DC home once cleared by PT Discharge Plan Discharge Plan Patient Disposition: Home Discharge orders & Medications Discharge Orders: Discharge (Order); Ordered 02/12/21 Ordered By: Pilar Gibbs Prescriptions: New acetaminophen 500 mg capsule 500 mg PO Q4H MDD Max 3000 mg per day PRN (Reason: fever or pain) Qty: 90 0RF aspirin 81 mg Tablet,Delayed Release (Dr/Ec) 81 mg PO BID 42 Days Qty: 84 0RF Rx Instructions: Prevent blood clots docusate sodium 100 mg Capsule 100 mg PO BID PRN (Reason: Constipation from narcotic pain meds) Qty: 30 0RF ondansetron 4 mg Tablet,Disintegrating 4 mg PO Q4HR PRN (Reason: Nausea) Qty: 7 0RF oxycodone 5 mg Tablet 5 mg PO Q4H PRN (Reason: Pain, Moderate (4-6)) Qty: 42 0RF Continued diazepam [Valium] 5 MG tablet 5 mg PO PRN PRN (Reason: Anxiety) 0RF naproxen sodium [Aleve] 220 mg Capsule 220 mg PO Q4H PRN (Reason: Pain) 0RF Follow up/Referrals: Eladio Beckett MD [Primary Care Provider] - Jackelin Alonzo MD [Physician] - (10-14 days for postoperative visit) Diet/Activity/Treatments Diet: Diet as Tolerated and Regular Other treatments: Medications: -Aspirin 81mg twice daily x6 weeks to prevent blood clots. -OTC Tylenol 500 mg 1 tablet every 4 hours as needed for pain/fever. Max 6 tablets per day. -Ibuprofen 400 mg 1 tablet every 4 hours as needed for pain/inflammation. Max 2,400 mg per day. -Oxycodone 5 mg take 1-2 tablets every 4 hours as needed for moderate-severe pain (narcotic pain medication). -As needed medications: -Ducolax and /or MiraLax as needed for constipation from narcotic pain medications. -Pepcid AC as needed for stomach upset (usually from aspirin or ibuprofen). Dressing/Wound care: -Keep Aquacell dressing in place until postoperative follow-up office visit. -Okay to shower. Keep wound out of direct water stream. No soaking or submerging until all the scabs fall off (approximately 6 weeks). -Please call the office if dressing becomes wet, soiled, or saturated. Activities: -Maintain anterior hip precautions x6 weeks. -Weight-bearing as tolerated. Use front wheeled walker, and progress to cane when safe. -Continue with home exercises as directed by your physical therapist. -Elevate ?toes above the nose if you have significant swelling in your lower leg. (A wedge pillow is easiest.) -Ice your incision as needed for pain/inflammation/swelling. Protect your skin with a folded pillowcase. Follow-up: -Follow-up with your surgeon or PA in the office in 10-14 days after surgery. -Follow-up with your surgeon 6 weeks postoperatively. Call the office if you have chest pain, shortness of breath, significant swelling that will not resolve with elevating, fever over 101?, significantly worsening pain. [facility]: [phone] Skin/Wound/Dressing Care Report to your healthcare provider any signs of infection, such as:: chills, fever, night sweats, unusual drainage and unusual redness Visit Report/Discharge Packet Instructions: DI for Hip Replacement Stand Alone Forms: Surgery Discharge Discharge Data Primary Care Provider: Eladio Beckett Attending Provider: Jackelin Alonzo VTE Deep Vein Thrombosis/Pulmonary Embolism Present on Admission: No
--- NOTE | 2021-02-12 10:34 | PT.IPTN ---
Current Diagnoses Unilateral primary osteoarthritis, left hip (02/11/21) Surgery Performed Operation Date: 02/11/21 07:45 Actual Procedures p Total Hip Arthroplasty/Anterior Approach(Left) - Jackelin Alonzo MD Physical Therapy Treatment Note M2 PT-IP Current Condition Start: 02/11/21 14:44 Freq: NEEDED Status: Active Protocol: Document 02/11/21 13:05 AB (Rec: 02/11/21 15:07 AB [id number]) Physical Therapy Current Condition Current Condition Evaluation Date 02/11/21 Treatment Diagnosis s/p L MJ anterior approach; difficulty in walking Onset Date 02/11/21 M3 PT-IP Subjective Start: 02/11/21 14:44 Freq: NEEDED Status: Active Protocol: Document 02/12/21 09:28 KS (Rec: 02/12/21 12:00 KS [id number]) Subjective Physical Therapy Visit Type Type Treatment Note Visit Start Time 09:28 Visit Stop Time 10:34 Total Visit Minutes 66 Notes Pts friend present for caregiver training. Number of ELEVATOR PILOT Visits 1 Physical Therapy Visit Comments Patient Comments Pt agreeable to work w/ therapy. Therapy Pain Assessment Pain When Pain Assessed During Mobility Pain Present Pain Present Pain Reported Location Left Hip Intensity 9 Scale Used Numeric (0 - 10) Description Pressure,Tender,Tightness Pain Behaviors Facial Grimacing,Guarding Pain Management Techniques Apply Cold,Distraction, Elevation,Re-positioning, Timing of Activity with Medications M4 PT-IP Mobility and Gait Start: 02/11/21 14:44 Freq: NEEDED Status: Active Protocol: Document 02/12/21 09:28 KS (Rec: 02/12/21 12:00 KS [id number]) PT-Bed Mobility Assessment Supine to Sit Supine to Sit Standby Assistance Sit to Supine Sit to Supine Standby Assistance Scooting Scooting to Edge of Bed Standby Assistance Scooting Up and Down in Bed Standby Assistance PT-Transfer Assessment Sit to and From Stand Sit to and from Stand Contact Guard Assistance,1 Person Assistance,Use of Upper Extremities Equipment Transfer Assistive Device Gait Belt,Front Wheeled Walker Orthotic/Prosthetic Devices or Brace: No Transfers Transfer Destination Bed,Wheelchair,Bedside Commode Transfer Technique w/ FWW Transfer Ability Level of Assist Contact Guard Assistance, Minimal Assistance,1 Person Assistance,Use of Upper Extremities Comments Mobility Comments Pt in bed upon arrival from PT and friend present for caregiver training. Pt able to recall hip precautions. SBA and use of gait belt for sup<> sit, SBA for scooting EOB. Demonstrated gait belt application to pts friend. Pt sit<>stand CGA and cues for hand placement and sequencing w/ FWW. She then ambulated ~30 ft in room CGA w/ FWW cues to avoid hyperextension. Pt then took 3 min seated rest break and transferred to w/c w/ FWW CGA. Pt transported to stairs in w/c for energy conservation . Pt able to ascend/descend 3 steps x2 w/ SPC and PACKAGER MACHINE and step to pattern, assist and cues appropriately provided by pts friend on second set. Pt then ambulated ~30 ft in direction of room w/ friend providing CGA. Pt w/c remaining distance and used toilet CGA to Min A for slow descent provided by pts friend . Pt then ambulated ~20 ft back to bed w/ FWW and sit<> sup SBA. Pt left in bed w/ all needs in reach. Gait Assessment Gait Gait Assistance Required: Contact Guard Assist,1 Person Assist Distance (Feet) 80 Able to Maintain Weight Bearing Status Yes During Gait Assistive Devices Assistive Device Gait Belt,Front Wheeled Walker Orthotic/Prosthetic Devices or Brace: No Gait Deviations General Gait Pattern Decreased Stride Length, Decreased Feet Clearance Factors Limiting Gait Function Factors Limiting Gait Function Decreased Activity Tolerance, Decreased Sensation,Decreased Strength,Difficulty Following Directions,Limited Range of Motion,Pain,Poor Balance,Poor Safety Awareness Comments Gait Comments Pt ambulated ~80 ft total today w/ FWW and CGA, min cues for proper sequencing and adherance to precautions. Pts friend Deb who will be assisting her at home was able to provide appropriate cues and assist. Stair Climbing Assessment Evaluation Level of Assist On Stairs Contact Guard Assistance, Minimal Assistance Devices Stair Climbing Assistive Devices Straight Cane Technique/Endurance Stair Climbing Direction Ascend and Descend Stair Climbing Technique Step to Step Number of Steps Climbed 3 Stair Climbing Set # Repetitions (reps) 2 Comments Stair Climbing Comments Pt ascended/descended 3 steps w/ SPC and PACKAGER MACHINE, step to pattern and cues for sequencing on first set and then was able to complete second set w/ caregiver providing same assist and cues . Pt and caregiver state they feel safe to complete stairs leading into home. PT-Balance Assessment Sitting Balance and Reactions Static Sitting Balance Ability Good Dynamic Sitting Balance Ability Good Standing Balance and Reactions Static Standing Balance Ability Good Dynamic Standing Balance Ability Fair Device Used FWW M5 PT-IP Objective Assessments Start: 02/11/21 14:44 Freq: NEEDED Status: Active Protocol: Document 02/11/21 13:05 AB (Rec: 02/11/21 15:07 AB [id number]) Orientation Orientation/Cognition Level of Alertness Alert Orientation Name Language Function Ability Hard of Hearing Safety Awareness Decreased Safety Awareness Memory Description Short Term Impaired Gross Range of Motion Lower Extremity ROM Assessment Within Functional Limits Strength Lower Extremity Strength Assessment Left Impaired Hip 3+/5 Knee 3+/5 Sensation Assessment Comments Sensation Comments c/o numbness/tingling on LLE M6 PT-IP Treatment Start: 02/11/21 14:44 Freq: NEEDED Status: Active Protocol: Document 02/12/21 09:28 KS (Rec: 02/12/21 12:00 KS [id number]) Physical Therapy Treatment Education Education Provided Precautions,Weight Bearing Status,Post-Op Packet,Safety M7 PT-IP Assessment and Plan Start: 02/11/21 14:44 Freq: NEEDED Status: Active Protocol: Document 02/12/21 09:28 KS (Rec: 02/12/21 12:00 KS [id number]) PT Summary Assessment and Plan Potential Rehabilitation Potential Good Status of Condition at Evaluation Evolving Summary Impairments Pain,ROM,Strength,Balance, Coordination,Sensation,Tone, Cognition,Bed Mobility, Transfers,Gait,Activity Tolerance Progress Towards Goals Progressing Toward Goals Assessment Summary Pt showed improvements w/ all mobility and tolerance for activity today. SBA and cues for bed mobility, CGA for ambulation, CGA/Min A for stair training. Completed caregiver training w/ pts friend who was able to provide appropriate cues and assist w / transfers, gait, and stairs. Pt will benefit from outpatient rehab to improve ROM, strength, and functional independence. Pt and caregiver state they feel safe to return home. Goals Bed Mobility Goal Standby Assistance Transfer Goal Standby Assistance,Front Wheeled Walker Gait Goal Standby Assistance,Front Wheel Walker Gait Distance 200 Other Goals up/down 2 steps using SPC/PACKAGER MACHINE CGA Days to Meet Goals 10 Frequency of Treatment Frequency Of Treatment Twice a Day Treatment Plan Physical Therapy Treatment Plan Bed Mobility Training,Transfer Training,Gait Training, Therapeutic Exercise,Balance Retraining,Post Op Education, Discharge Planning,Hot or Cold Pack,Neuromuscular Re-ed, Coordination Retraining,Manual Therapy Precautions Anterior Hip Precautions No Hip Extension,No Hip External Rotation Weight Bearing Status Weight Bearing Status Weight Bear as Tolerated Allowed Weight Bearing Amount (enter % LLE WBAT or #) (%) Recommendations To Nursing Amount of Assist Needed 1 Person Assist Discharge Recommendations PT Discharge Recommendations Home with 25/09 Assist Available,Outpatient PT Transportation Needs at Discharge Private Vehicle,Wheelchair/ Cabulance
--- NOTE | 2021-02-12 10:47 | CM.IDA ---
Initial DCP Assessment Note Pt is a 70 yo female, resident of [place], now POD#1 from p Total Hip Arthroplasty/Anterior Approach(Left) - Jackelin Alonzo MD PCP: Dr Beckett Payer: PRIYA/Shayy Reviewed chart, patient just completing stair training w/friend Deb standing by. Patient eager to return home and it appears she will be cleared by therapies. Ortho PA has completed DC order for today plan: home w/friend and outpatient f/u No needs expected from DC planning team although will remain available in case this changes today. VALERIA Hernandez Discharge Planning/Care Management CM Discharge Assessment Start: 02/12/21 10:36 Freq: Status: Active Protocol: Document 02/12/21 10:36 WENDY (Rec: 02/12/21 10:47 WENDY [id number]) Discharge Planning Assessment Assigned Basketball Referee VALERIA Kraft DPOA/Assigned Designee Name Balaji Salvador, son ([place]) P# [phone] Contact Information Deb Pimentel, Angelique willson P# [phone] Advance Directives? Yes Advance Directives on File No History Provided By Patient,Medical Record Prior Living Arrangements House Household Members none Type of transporation used prior to Drives own vehicle admit Independent with ADL's Yes Is patient alert and oriented? Yes Barriers to Discharge No Comment Patient wants to return home, friend Deb here for cg training this morning, appeared to go well. DC order from Ortho PA Discharge Plan Home Transportation Arrangement Friend Referrals Initiated None needed
--- NOTE | 2021-02-12 16:55 | PC.NURSE ---
Discharge: Pt feels ready to d/c to home. Had emesis last night. Tolerated diet with out problems this am. Did get zofran prior to meds. Will have zofran available at home if she should need it. Po pain meds have been effective. Is voiding w/out diff. Seen by PT and passed to go home. Seen by PA and given d/c instructions. Pt also received wound care instructions. Reviewed d/c packet. questions answered. Pt d/c to home via auto with friend.
== END 2021-02-12 13:30 | disposition home or self-care (01) ==
LOC: OR 06:24 → AC 06:29
PROVIDERS: Family Provider Internal Medicine; PCP Internal Medicine; Referring Provider Orthopaedic Surgery; Visit Provider Orthopaedic Surgery
PROC: (CPT 27130; principal; 2021-02-11 07:45)
DX: M16.12 Unilateral primary osteoarthritis, left hip (principal); F41.9 Anxiety disorder, unspecified
CPT/HCPCS: 27130; 36415; 73502; 85014; 85018; 97116; 97162; 97530; C1776; C9290; J0171; J0690; J1100; J1200; J2250; J2274; J2405; J2704; J3010

== ENCOUNTER → 2021-04-26 11:48 | Outpatient (CLI) | payer MEDICARE, OTHER, SELFPAY ==
[2021-02-11 12:17] VITALS: BMI 27.4
--- NOTE | 2021-04-26 | DI.RAD.S_ITS ---
PROCEDURE: XR PELVIS 1-2V INDICATIONS: Presence of left artificial hip joint, back pain TECHNIQUE: 1 view(s) of the pelvis acquired. COMPARISON: [facility] [place], CR, XR PELVIS WITH LATERAL HIP LEFT, 02/23/2021, 13:56. [facility] [place], CR, XR PELVIS WITH LATERAL HIP LEFT, 03/30/2021, 10:29. FINDINGS: Bones: No fractures or dislocations. No suspicious bony lesions. Stable appearance of right hip arthroplasty. Hardware is intact without evidence of periprosthetic loosening or hardware fracture. Mild right hip arthritic narrowing. Mild degenerative changes are present within the visualized lower lumbar spine. Soft tissues: Visualized bowel gas pattern is normal. No suspicious soft tissue calcifications. IMPRESSION: Stable appearance of left hip arthroplasty. Dictated by: Jocelynn Mcbride M.D. on 04/26/2021 at 17:31 Approved by: Jocelynn Mcbride M.D. on 04/26/2021 at 17:31
== END ==
PROVIDERS: Family Provider Internal Medicine; PCP Internal Medicine; Referring Provider Internal Medicine; Visit Provider Internal Medicine
DX: M47.816 Spondylosis without myelopathy or radiculopathy, lumbar region (principal); M54.9 Dorsalgia, unspecified; M21.70 Unequal limb length (acquired), unspecified site; Z96.642 Presence of left artificial hip joint
CPT/HCPCS: 72170

== ENCOUNTER → 2021-10-28 08:38 | Outpatient (CLI) | payer MEDICARE, OTHER, SELFPAY ==
[2021-02-11 12:17] VITALS: BMI 27.4
[2021-10-28 09:25] LABS: Add Manual Diff / Slide Review NO; Basophils Absolute Auto 0 /uL (0-100); Basophils Percent Auto 0.8 % (0-2); Eosinophils Absolute Auto 200 /uL (0-450); Eosinophils Percent Auto 3.9 % (2-4); Hematocrit 39.6 % (36-46); Hemoglobin 13.9 g/dL (12.0-16.0); Lymphocytes Absolute Auto 1400 /uL (1100-4500); Lymphocytes Percent Auto 30.4 % (25-40); Mean Corpuscular HGB Conc 35.1 % (30-36); Mean Corpuscular Volume 85.6 fL (80-100); Monocytes Absolute Auto 300 /uL (0-900); Monocytes Percent Auto 7.5 % (3-14); Neutrophils Absolute Auto 2700 /uL (1500-7000); Neutrophils Percent Auto 57.4 % (50-75); Platelet Count 237 X10^3/uL (150-400); Red Blood Cell Count 4.63 X10^6/uL (4.0-5.2); Red Cell Distribution Width 13.5 % (11.6-14.8); White Blood Cell Count 4.6 X10^3/uL (4.5-11.0)
[2021-10-28 10:24] LABS: Cholesterol 274 mg/dL (140-199); HDL Cholesterol 47 mg/dL (40-60); LDL Cholesterol Calculated 187 mg/dL (<100); Triglycerides 199 mg/dL (35-150)
[2021-10-28 10:55] LABS: Hemoglobin A1C% w Est Avg Glu 5.7 % (4.0-6.0)
[2021-10-28 12:20] LABS: Vitamin D 25 Hydroxy (D3) 48.4 ng/mL (30.0-100.0)
== END ==
PROVIDERS: PCP Family Medicine; Referring Provider Family Medicine; Visit Provider Family Medicine
DX: D64.9 Anemia, unspecified (principal); R73.03 Prediabetes; E78.00 Pure hypercholesterolemia, unspecified; E55.9 Vitamin D deficiency, unspecified; L40.9 Psoriasis, unspecified; R73.9 Hyperglycemia, unspecified
CPT/HCPCS: 36415; 80061; 82306; 83036; 85025

== ENCOUNTER → 2021-10-28 08:41 | Outpatient (CLI) | payer MEDICARE, OTHER, SELFPAY ==
[2021-02-11 12:17] VITALS: BMI 27.4
--- NOTE | 2021-10-28 11:41 | DI.CT.S_ITS ---
PROCEDURE: CT LUNG LOW DOSE SCREENING INDICATIONS: 30+ pack year smoker TECHNIQUE: Noncontrast 2.0-2.5 mm thick sections acquired from the pulmonary apices to the posterior costophrenic angles. 7 mm thick axial MIP, and 5 mm coronal and sagittal reformats were then acquired. A low radiation dose technique was utilized. COMPARISON: None. FINDINGS: Image quality: Diagnostic, given the low radiation dose technique. Lungs and pleura: Right middle lobe pulmonary nodule measuring 0.5 cm, (3/203). This has a platelike configuration on the coronal series. No mass. No acute airspace opacity. Airways are clear. No pleural effusion. No pneumothorax. Mediastinum: Heart size is normal. No pericardial effusion. No mediastinal adenopathy by size criteria. Thoracic aorta and central pulmonary arteries are normal in size. Minimal plaque at the aortic arch. Esophagus is normal in caliber. No hiatal hernia. Bones and chest wall: No suspicious bony lesions. No vertebral body compression fractures. DDD. No axillary or supraclavicular adenopathy by size criteria. Thyroid gland is unremarkable. Abdomen: Visualized upper abdomen solid organs and bowel loops appear normal in the absence of contrast. IMPRESSION: Right middle lobe pulmonary nodule measuring 0.5 cm. LUNG-RADS 2; recommend follow-up lung cancer screening chest CT in 12 months. Dictated by: Calderon Dahl M.D. on 10/28/2021 at 13:43 Approved by: Calderon Dahl M.D. on 10/28/2021 at 13:49
== END ==
PROVIDERS: PCP Family Medicine; Referring Provider Family Medicine; Visit Provider Family Medicine
DX: Z13.83 Encounter for screening for respiratory disorder NEC (principal); R91.1 Solitary pulmonary nodule; Z87.891 Personal history of nicotine dependence; D64.9 Anemia, unspecified; R73.03 Prediabetes; E78.00 Pure hypercholesterolemia, unspecified; E55.9 Vitamin D deficiency, unspecified; L40.9 Psoriasis, unspecified; R73.9 Hyperglycemia, unspecified
CPT/HCPCS: 36415; 71250; 80061; 82306; 83036; 85025

== ENCOUNTER → 2021-12-22 15:10 | Outpatient (CLI) | payer MEDICARE, OTHER, SELFPAY ==
[2021-02-11 12:17] VITALS: BMI 27.4
--- NOTE | 2021-12-22 15:11 | DI.MG.S_ITS ---
BILATERAL DIGITAL SCREENING MAMMOGRAM 3D/2D WITH CAD: 12/22/2021 CLINICAL: Routine screening. Family history of breast cancer. Comparison is made to exams dated: 12/08/2020 mammogram, 04/09/2018 mammogram, and 11/23/2016 mammogram - [facility]. There are scattered areas of fibroglandular density in both breasts (category b / 25%-50% glandular tissue). Current study was also evaluated with a Computer Aided Detection (CAD) system. There are benign vascular calcifications in the right breast. No significant masses, calcifications, or other findings are seen in either breast. There has been no significant interval change. IMPRESSION: BENIGN There is no mammographic evidence of malignancy. A 1 year screening mammogram is recommended. Based on the Tyrer Cuzick model (a risk assessment model) the patient's lifetime risk is 9.6% and her 10 year risk is 7.2%. According to the ACR, ACS, and NCCN guidelines, an annual breast MRI exam along with mammogram is recommended if the patient's lifetime risk is 20% or greater. This exam was interpreted at Station ID: [id number]. NOTE: For mammograms, a report in lay terms will be sent to the patient. Approximately 15% of breast malignancies will not be visualized mammographically. In the management of a palpable breast mass, a negative mammogram must not discourage biopsy of a clinically suspicious lesion. Electronically Signed By: Calderon longo/jesus:12/23/2021 09:06:36 letter sent: Normal Exam ACR BI-RADS Category 2: Benign Finding(s) 3342F
== END ==
PROVIDERS: PCP Family Medicine; Referring Provider Family Medicine; Visit Provider Family Medicine
DX: Z12.31 Encounter for screening mammogram for malignant neoplasm of breast (principal); Z80.3 Family history of malignant neoplasm of breast
CPT/HCPCS: 77063; 77067

== ENCOUNTER → 2022-01-25 09:08 | Outpatient (CLI) | payer MEDICARE, OTHER, SELFPAY ==
[2021-02-11 12:17] VITALS: BMI 27.4
[2022-01-25 10:07] LABS: COVID19 -Nasal RAPID Negative (Negative)
== END ==
PROVIDERS: PCP Family Medicine; Referring Provider Internal Medicine; Visit Provider Internal Medicine
DX: Z20.822 Contact with and (suspected) exposure to COVID-19 (principal)
CPT/HCPCS: 87635; C9803

== ENCOUNTER → 2022-01-25 09:11 | Outpatient (CLI) | payer MEDICARE, OTHER, SELFPAY ==
[2021-02-11 12:17] VITALS: BMI 27.4
--- NOTE | 2022-01-31 07:54 | PM.PFT.1 ---
Pulmonary Function Test Referral & Results Date Patient Seen: 01/25/22 Requesting provider: Nicci Laurent Results: The spirometry demonstrates an FVC of 2.27 L which is 85% of predicted. The FEV1 was measured at 1.61 L which is 80% of predicted. The FEV1/FVC ratio was 71 which is 94% of predicted. Following the administration of bronchodilator there was a 59% improvement in FEF 25-75%. Lung volumes show an SVC of 2.64 L which is 101% of predicted. The diffusing capacity was measured at 22.91 which is 106% of predicted. The maximum voluntary ventilation was normal Interpretation: This study demonstrates perhaps mild obstructive lung disease based on a very minimal reduction FEV1 although FEV1/FVC ratio is preserved there is some limited evidence of benefit following bronchodilator particularly in small airway flow as noted above with the improvement in the FEF 25-75% Lung volumes and diffusing capacity are normal Clinical correlation suggested
== END ==
PROVIDERS: PCP Family Medicine; Referring Provider Nurse Practitioner Family; Visit Provider Nurse Practitioner Family
DX: R06.02 Shortness of breath (principal); J98.8 Other specified respiratory disorders; Z20.822 Contact with and (suspected) exposure to COVID-19; Z87.891 Personal history of nicotine dependence
CPT/HCPCS: 87635; 94060; 94726; 94729; C9803

== ENCOUNTER → 2022-02-28 08:13 | Outpatient (CLI) | payer MEDICARE, OTHER, SELFPAY ==
[2021-02-11 12:17] VITALS: BMI 27.4
[2022-02-28 15:03] LABS: Hemoglobin A1C% w Est Avg Glu 5.7 % (4.0-6.0)
== END ==
PROVIDERS: PCP Family Medicine; Referring Provider Family Medicine; Visit Provider Family Medicine
DX: Z00.00 Encounter for general adult medical examination without abnormal findings (principal); R73.03 Prediabetes; E78.00 Pure hypercholesterolemia, unspecified
CPT/HCPCS: 36415; 83036

== ENCOUNTER → 2022-05-09 08:12 | Outpatient (CLI) | payer MEDICARE, OTHER, SELFPAY ==
[2021-02-11 12:17] VITALS: BMI 27.4
[2022-05-09 09:56] LABS: Cholesterol 252 mg/dL (140-199); HDL Cholesterol 51 mg/dL (40-60); LDL Cholesterol Calculated 165 mg/dL (<100); Triglycerides 179 mg/dL (35-150)
== END ==
PROVIDERS: PCP Family Medicine; Referring Provider Internal Medicine Cardiovascular Disease; Visit Provider Internal Medicine Cardiovascular Disease
DX: E78.5 Hyperlipidemia, unspecified (principal)
CPT/HCPCS: 36415; 80061

== ENCOUNTER 2022-08-01 13:30 | Outpatient (RCR) | payer MEDICARE, OTHER, SELFPAY ==
[2021-02-11 12:17] VITALS: BMI 27.4
--- NOTE | 2022-06-13 16:33 | PT.OTN ---
Current Diagnoses Pain in left hip (06/13/22) Postlaminectomy syndrome, not elsewhere classified (06/13/22) Physical Therapy Treatment Note PT-OP-A Visit Information Start: 06/13/22 14:35 Freq: Status: Active Protocol: Document 06/13/22 14:35 TH (Rec: 06/13/22 16:33 TH [id number]) Out-Patient Physical Therapy Visit Information Visit Information Visit Type Initial Evaluation Visit Start Time 14:30 Visit Stop Time 15:15 Total Visit Minutes 45 Visit Number 1 Number of CAPACITOR INSPECTOR Visits 0 PT-OP-B Current Condition Start: 06/13/22 14:35 Freq: Status: Active Protocol: Document 06/13/22 14:35 TH (Rec: 06/13/22 16:33 TH [id number]) Current Condition History of Current Condition Onset Date 01/02/23 History of Current Condition Pt reports scoliosis since childhood. Pt has had chronic LBP and hip pain for years. With recenet laminectomy and L MJ in the last two years. Pt has hx of bilateral ( laterally). Bilat. neuropathy / feet numb. Lateral LE pain is a little better since laminetomy ( 12/2021). Pt also c/o LBP both sides and thoracic spine. The moajority of pain is felt in the left ant/lateral hip. Prior Functional Status Baseline Function- ADL's Independent Baseline Function- Mobility Independent Baseline Function- Work/School Drives Current Functional Impairments (Reported) Functional Limitations- ADL's IND though scrubbing shower, cooking and cleaning dishes difficult. Functional Limitations- Mobility/Gait Prolonged sitting,standing difficult. PT-OP-J Posture/Palpation/Skin Start: 06/13/22 14:35 Freq: Status: Active Protocol: Document 06/13/22 14:35 TH (Rec: 06/13/22 16:33 TH [id number]) Posture Evaluation Comments Posture Comments Left LE longer since hip surgery ( pt wears lift in right shoe), concave left, right trunk ant.rot. , pelvic obliquity due to scoliosis left higher than right , right hip flexors tight PT-OP-K Range of Motion Start: 06/13/22 14:35 Freq: Status: Active Protocol: Document 06/13/22 14:35 TH (Rec: 06/13/22 16:33 TH [id number]) Lumbar Spine Range of Motion Lumbar Spine Active Comments Flex: limited Ext: WFL Rot r/l : limited PT-OP-L Special Tests Start: 06/13/22 14:35 Freq: Status: Active Protocol: Document 06/13/22 14:35 TH (Rec: 06/13/22 16:33 TH [id number]) Special Tests Lumbar Spine Special Tests MOD OSW Test Results 26 PT-OP-Q Treatments Start: 06/13/22 14:35 Freq: Status: Active Protocol: Document 06/13/22 14:35 TH (Rec: 06/13/22 16:33 TH [id number]) Manual Therapy Treatment Manual Techniques iliopsoas release Body Location r hip Body Position Supine PT-OP-T Assessment and Plan Start: 06/13/22 14:35 Freq: Status: Active Protocol: Document 06/13/22 14:35 TH (Rec: 06/13/22 16:33 TH [id number]) Physical Therapy Assessment Rehab Potential Rehabilitation Potential Excellent Evaluation Complexity Number of Personal Factors/Comorbidities 0 Number of Body Systems Impaired 1-2 Clinical Presentation at Evaluation Stable Impairments Impairments Activity Tolerance,Pain Goals 2 Impairment Unable to sleep throughout the night Short Term Goal (STG) Pt will be able to sleep with 50 % less interruptions as a result of pain throughout the night. STG Duration 07/25/22 Mcc Goal (LTG) Pt will be able to sleep with 0 interruptions as a result of pain throughout the night. LTG Duration 09/05/22 1 Impairment Unable to tolerate prolonged sitting/standing Short Term Goal (STG) Pt will be able to sit/stand for > = 30 min with left hip pain < = 4/10. STG Duration 07/25/22 Mcc Goal (LTG) Pt will be able to sit/stand for > = 45 min with minimal to no left hip pain. LTG Duration 09/05/22 Assessment Summary Assessment Pt presents with a long hx of scoliosis, status post laminectomy 2022, left hip MJ 2021 and muscle imbalance of core/hip muscles leading to LBP and Bilat. hip pain Left > Right. Pt will benefot from further Pt to improve core / hip strength around scoliosis. Physical Therapy Plan Frequency and Duration Frequency of Treatment 1-2x/wk Duration of treatment (weeks) 12 Plan of Care Start Date 06/13/22 Plan of Care End Date 09/05/22 Next Visit Focus/Plan Next Note Type Treatment Note Next Visit Plan Manual -iliopsoas release Core / hip strength ex.
--- NOTE | 2022-06-13 16:36 | PT.OIE ---
Current Diagnoses Pain in left hip (06/13/22) Postlaminectomy syndrome, not elsewhere classified (06/13/22) Past Medical History (Last Updated 11/14/21 @ 14:29 by Clint Pat MD) Anemia Anxiety Depression Elevated cholesterol Fibromyalgia Hearing impaired High blood pressure Neuropathy Osteoarthritis Pre-diabetes Rectocele Past Surgical History (Last Reviewed 02/12/21 @ 10:00 by Pilar Gibbs PA-C) History of dilation and curettage History of tonsillectomy Hx of hernia repair (1987) Hx of LASIK Visit Care Team Role Provider Type Clint Pat MD Family Provider Physician Primary Care Provider Specialty: Family Practice Address: [address] [place] [address], [id number] Email: [email or web address] Francesco Hebert MD Attending Provider Non-Staff Referring Provider Specialty: Neurosurgery Address: [address] [place] [address], [id number] Email: Physical Therapy Initial Evaluation PT-OP-A Visit Information Start: 06/13/22 14:35 Freq: Status: Active Protocol: Document 06/13/22 14:35 TH (Rec: 06/13/22 16:33 TH [id number]) Out-Patient Physical Therapy Visit Information Visit Information Visit Type Initial Evaluation Visit Start Time 14:30 Visit Stop Time 15:15 Total Visit Minutes 45 Visit Number 1 Number of OPAL MINER Visits 0 PT-OP-B Current Condition Start: 06/13/22 14:35 Freq: Status: Active Protocol: Document 06/13/22 14:35 TH (Rec: 06/13/22 16:33 TH [id number]) Current Condition History of Current Condition Onset Date 01/02/23 History of Current Condition Pt reports scoliosis since childhood. Pt has had chronic LBP and hip pain for years. With recenet laminectomy and L MJ in the last two years. Pt has hx of bilateral ( laterally). Bilat. neuropathy / feet numb. Lateral LE pain is a little better since laminetomy ( 12/2021). Pt also c/o LBP both sides and thoracic spine. The moajority of pain is felt in the left ant/lateral hip. Prior Functional Status Baseline Function- ADL's Independent Baseline Function- Mobility Independent Baseline Function- Work/School Drives Current Functional Impairments (Reported) Functional Limitations- ADL's IND though scrubbing shower, cooking and cleaning dishes difficult. Functional Limitations- Mobility/Gait Prolonged sitting,standing difficult. PT-OP-J Posture/Palpation/Skin Start: 06/13/22 14:35 Freq: Status: Active Protocol: Document 06/13/22 14:35 TH (Rec: 06/13/22 16:33 TH [id number]) Posture Evaluation Comments Posture Comments Left LE longer since hip surgery ( pt wears lift in right shoe), concave left, right trunk ant.rot. , pelvic obliquity due to scoliosis left higher than right , right hip flexors tight PT-OP-K Range of Motion Start: 06/13/22 14:35 Freq: Status: Active Protocol: Document 06/13/22 14:35 TH (Rec: 06/13/22 16:33 TH [id number]) Lumbar Spine Range of Motion Lumbar Spine Active Comments Flex: limited Ext: WFL Rot r/l : limited PT-OP-L Special Tests Start: 06/13/22 14:35 Freq: Status: Active Protocol: Document 06/13/22 14:35 TH (Rec: 06/13/22 16:33 TH [id number]) Special Tests Lumbar Spine Special Tests MOD OSW Test Results 26 PT-OP-Q Treatments Start: 06/13/22 14:35 Freq: Status: Active Protocol: Document 06/13/22 14:35 TH (Rec: 06/13/22 16:33 TH [id number]) Manual Therapy Treatment Manual Techniques iliopsoas release Body Location r hip Body Position Supine PT-OP-T Assessment and Plan Start: 06/13/22 14:35 Freq: Status: Active Protocol: Document 06/13/22 14:35 TH (Rec: 06/13/22 16:33 TH [id number]) Physical Therapy Assessment Rehab Potential Rehabilitation Potential Excellent Evaluation Complexity Number of Personal Factors/Comorbidities 0 Number of Body Systems Impaired 1-2 Clinical Presentation at Evaluation Stable Impairments Impairments Activity Tolerance,Pain Goals 2 Impairment Unable to sleep throughout the night Short Term Goal (STG) Pt will be able to sleep with 50 % less interruptions as a result of pain throughout the night. STG Duration 07/25/22 Ed Physicians Goal (LTG) Pt will be able to sleep with 0 interruptions as a result of pain throughout the night. LTG Duration 09/05/22 1 Impairment Unable to tolerate prolonged sitting/standing Short Term Goal (STG) Pt will be able to sit/stand for > = 30 min with left hip pain < = 4/10. STG Duration 07/25/22 Correction Goal (LTG) Pt will be able to sit/stand for > = 45 min with minimal to no left hip pain. LTG Duration 09/05/22 Assessment Summary Assessment Pt presents with a long hx of scoliosis, status post laminectomy 2022, left hip MJ 2021 and muscle imbalance of core/hip muscles leading to LBP and Bilat. hip pain Left > Right. Pt will benefot from further Pt to improve core / hip strength around scoliosis. Physical Therapy Plan Frequency and Duration Frequency of Treatment 1-2x/wk Duration of treatment (weeks) 12 Plan of Care Start Date 06/13/22 Plan of Care End Date 09/05/22 Next Visit Focus/Plan Next Note Type Treatment Note Next Visit Plan Manual -iliopsoas release Core / hip strength ex.
--- NOTE | 2022-06-20 12:25 | PT.OTN ---
Current Diagnoses Pain in left hip (06/20/22) Postlaminectomy syndrome, not elsewhere classified (06/20/22) Physical Therapy Treatment Note PT-OP-A Visit Information Start: 06/13/22 14:35 Freq: Status: Active Protocol: Document 06/20/22 11:12 TH (Rec: 06/20/22 12:25 TH [id number]) Out-Patient Physical Therapy Visit Information Visit Information Visit Type Treatment Note Visit Start Time 11:15 Visit Stop Time 12:00 Total Visit Minutes 45 Visit Number 2 Number of TILE DITCHER Visits 0 PT-OP-B Current Condition Start: 06/13/22 14:35 Freq: Status: Active Protocol: Document 06/13/22 14:35 TH (Rec: 06/13/22 16:33 TH [id number]) Current Condition History of Current Condition Onset Date 01/02/23 History of Current Condition Pt reports scoliosis since childhood. Pt has had chronic LBP and hip pain for years. With recenet laminectomy and L MJ in the last two years. Pt has hx of bilateral ( laterally). Bilat. neuropathy / feet numb. Lateral LE pain is a little better since laminetomy ( 12/2021). Pt also c/o LBP both sides and thoracic spine. The moajority of pain is felt in the left ant/lateral hip. Prior Functional Status Baseline Function- ADL's Independent Baseline Function- Mobility Independent Baseline Function- Work/School Drives Current Functional Impairments (Reported) Functional Limitations- ADL's IND though scrubbing shower, cooking and cleaning dishes difficult. Functional Limitations- Mobility/Gait Prolonged sitting,standing difficult. PT-OP-C Subjective Start: 06/13/22 14:35 Freq: Status: Active Protocol: Document 06/20/22 11:12 TH (Rec: 06/20/22 12:25 TH [id number]) OP-PT Subjective Patient Comments Patient Comments Pt reports she has started to use her shoe lift again and this seems to be helping some. She has been diligent with HEP. PT-OP-J Posture/Palpation/Skin Start: 06/13/22 14:35 Freq: Status: Active Protocol: Document 06/13/22 14:35 TH (Rec: 06/13/22 16:33 TH [id number]) Posture Evaluation Comments Posture Comments Left LE longer since hip surgery ( pt wears lift in right shoe), concave left, right trunk ant.rot. , pelvic obliquity due to scoliosis left higher than right , right hip flexors tight PT-OP-K Range of Motion Start: 06/13/22 14:35 Freq: Status: Active Protocol: Document 06/13/22 14:35 TH (Rec: 06/13/22 16:33 TH [id number]) Lumbar Spine Range of Motion Lumbar Spine Active Comments Flex: limited Ext: WFL Rot r/l : limited PT-OP-L Special Tests Start: 06/13/22 14:35 Freq: Status: Active Protocol: Document 06/13/22 14:35 TH (Rec: 06/13/22 16:33 TH [id number]) Special Tests Lumbar Spine Special Tests MOD OSW Test Results 26 PT-OP-Q Treatments Start: 06/13/22 14:35 Freq: Status: Active Protocol: Document 06/20/22 11:12 TH (Rec: 06/20/22 12:25 TH [id number]) Therapeutic Exercises Other Exercises bridges Comments 2 x 10 isometric hip abduction Comments 2 x 10 green band TA/gluteus med activation hip hike Comments 1 x 10 Manual Therapy Treatment Manual Techniques SI joint mob. Comments left iliopsoas release Comments left Self-Care/Home Management Treatment Education Other Education Access Code: [email or web address] URL: [email or web address] Date: 06/20/2022 Prepared by: Caitlyn Lam Exercises - Standing Hip Flexor Stretch with Foot Elevated - 1 x daily - 7 x weekly - 1 sets - 3 reps - 30-60 sec hold - Hooklying Isometric Clamshell - 1 x daily - 7 x weekly - 1-2 sets - 10 reps - Supine Hip Hike - 1 x daily - 7 x weekly - 1 sets - 10 reps - Seated Hamstring Stretch - 1 x daily - 7 x weekly - 1 sets - 3 reps - 30 sec hold PT-OP-T Assessment and Plan Start: 06/13/22 14:35 Freq: Status: Active Protocol: Document 06/20/22 11:12 TH (Rec: 06/20/22 12:25 TH [id number]) Physical Therapy Assessment Rehab Potential Rehabilitation Potential Excellent Evaluation Complexity Number of Personal Factors/Comorbidities 0 Number of Body Systems Impaired 1-2 Clinical Presentation at Evaluation Stable Impairments Impairments Activity Tolerance,Pain Goals 2 Impairment Unable to sleep throughout the night Short Term Goal (STG) Pt will be able to sleep with 50 % less interruptions as a result of pain throughout the night. STG Duration 07/25/22 Mcc Goal (LTG) Pt will be able to sleep with 0 interruptions as a result of pain throughout the night. LTG Duration 09/05/22 1 Impairment Unable to tolerate prolonged sitting/standing Short Term Goal (STG) Pt will be able to sit/stand for > = 30 min with left hip pain < = 4/10. STG Duration 07/25/22 Mcc Goal (LTG) Pt will be able to sit/stand for > = 45 min with minimal to no left hip pain. LTG Duration 09/05/22 Assessment Summary Assessment Pt is making gradual progress as demonstrated by improved left hip mechanics. Left SI joint mobility is improving with maual therapy. As well as decreased left hip pain. Physical Therapy Plan Frequency and Duration Frequency of Treatment 1-2x/wk Duration of treatment (weeks) 12 Plan of Care Start Date 06/13/22 Plan of Care End Date 09/05/22 Therapeutic Interventions Therapeutic Interventions Balance Training,Coordination Training,Gait Training,Home Exercise Program,Joint Mobilizations,Manual Therapy, Neuromuscular Re-education, Orthotic/Prosthetic Management ,Patient/Caregiver Education, Self-Care/Home Management, Sensory Integration,Soft Tissue Mobilization,Taping, Therapeutic Activities, Therapeutic Exercises Modalities Cold Pack/Ice Massage,Electric Stimulation,Hot Packs, Ultrasound
--- NOTE | 2022-06-26 12:36 | PT.OTN ---
Current Diagnoses Pain in left hip (06/26/22) Postlaminectomy syndrome, not elsewhere classified (06/26/22) Physical Therapy Treatment Note PT-OP-A Visit Information Start: 06/13/22 14:35 Freq: Status: Active Protocol: Document 06/26/22 11:22 NBM (Rec: 06/26/22 12:33 [facility] [id number]) Out-Patient Physical Therapy Visit Information Visit Information Visit Type Treatment Note Visit Start Time 11:21 Visit Stop Time 12:06 Total Visit Minutes 45 Visit Number 3 Number of FLYER BUILDER Visits 1 Precautions Precautions INUPIAT - L ear preferred PT-OP-B Current Condition Start: 06/13/22 14:35 Freq: Status: Active Protocol: Document 06/13/22 14:35 TH (Rec: 06/13/22 16:33 TH [id number]) Current Condition History of Current Condition Onset Date 01/02/23 History of Current Condition Pt reports scoliosis since childhood. Pt has had chronic LBP and hip pain for years. With recenet laminectomy and L MJ in the last two years. Pt has hx of bilateral ( laterally). Bilat. neuropathy / feet numb. Lateral LE pain is a little better since laminetomy ( 12/2021). Pt also c/o LBP both sides and thoracic spine. The moajority of pain is felt in the left ant/lateral hip. Prior Functional Status Baseline Function- ADL's Independent Baseline Function- Mobility Independent Baseline Function- Work/School Drives Current Functional Impairments (Reported) Functional Limitations- ADL's IND though scrubbing shower, cooking and cleaning dishes difficult. Functional Limitations- Mobility/Gait Prolonged sitting,standing difficult. PT-OP-C Subjective Start: 06/13/22 14:35 Freq: Status: Active Protocol: Document 06/26/22 11:22 NBM (Rec: 06/26/22 12:33 [facility] [id number]) OP-PT Subjective Patient Comments Patient Comments Pt reports she has lift in her R shoe today and has been doing her 4 ex's through [employer] and uses a timer. She did not sleep well last night because she rolled onto her L hip PT-OP-J Posture/Palpation/Skin Start: 06/13/22 14:35 Freq: Status: Active Protocol: Document 06/13/22 14:35 TH (Rec: 06/13/22 16:33 TH [id number]) Posture Evaluation Comments Posture Comments Left LE longer since hip surgery ( pt wears lift in right shoe), concave left, right trunk ant.rot. , pelvic obliquity due to scoliosis left higher than right , right hip flexors tight PT-OP-K Range of Motion Start: 06/13/22 14:35 Freq: Status: Active Protocol: Document 06/13/22 14:35 TH (Rec: 06/13/22 16:33 TH [id number]) Lumbar Spine Range of Motion Lumbar Spine Active Comments Flex: limited Ext: WFL Rot r/l : limited PT-OP-L Special Tests Start: 06/13/22 14:35 Freq: Status: Active Protocol: Document 06/13/22 14:35 TH (Rec: 06/13/22 16:33 TH [id number]) Special Tests Lumbar Spine Special Tests MOD OSW Test Results 26 PT-OP-Q Treatments Start: 06/13/22 14:35 Freq: Status: Active Protocol: Document 06/26/22 11:22 NBM (Rec: 06/26/22 12:33 NBM [id number]) Cardio Equipment Recumbent Elliptical (Biodex) Duration (Minutes) 6 Resistance 1>3 Seat Position 5 Other 30 rpm Therapeutic Exercises Supine Exercises TrA Supine Exercise Name 1.TrA 2. w/ PPT 3. w/ball squeeze (added to HEP) Side bilateral Equipment Used green ball Reps/Minutes 6 min Comments self-monitoring TrA, cues for breathholding Sidelying Exercises open book stretch Sidelying Exercise Name added to HEP Side bilateral Reps/Minutes x10 ea Comments positive feedback response Standing Exercises hip extension Side bilateral Resistance Lvl 3 Tb (green) Equipment Used handrail Reps/Minutes 2x10 ea Comments vc for lumbar hyperextension Kitchen sink stretch Standing Exercise Name added to HEP Equipment Used handrail Reps/Minutes 2x30 Comments positive feedback response hip abduction Side bilateral Resistance Lvl 3 Tb (green) Equipment Used handrail Reps/Minutes 2x10 ea Comments cues for neutral foot R>L quad stretch Standing Exercise Name HEP Side bilateral Equipment Used GLASS FORMING ENGINEER prn Reps/Minutes 30s ea Comments L>R tightness Other Exercises bridges Other Exercise Name review next session Comments 2 x 10 isometric hip abduction Other Exercise Name single leg clamshell - Review next session Comments 2 x 10 green band TA/gluteus med activation hip hike Other Exercise Name review next session Comments 1 x 10 Self-Care/Home Management Treatment Education Other Education Pt educated on core anatomy and relationship between hip adductors, pelvic floor, Transverse abdominus, and diaphragam w/ importance of not breathholding. Pt taught to self-monitor TrA activation medial to ASIS in supine. Added to HEP: s/l open book stretch, supine ball squeeze w / PPT and TrA focus, Kitchen sink stretch - HO given. PT-OP-T Assessment and Plan Start: 06/13/22 14:35 Freq: Status: Active Protocol: Document 06/26/22 11:22 [facility] (Rec: 06/26/22 12:33 [facility] [id number]) Physical Therapy Assessment Goals 2 Impairment Unable to sleep throughout the night Short Term Goal (STG) Pt will be able to sleep with 50 % less interruptions as a result of pain throughout the night. 06/26/22: Pt reports she awakes from pain as soon as she rolls onto L hip - woke up once last night. STG Duration 07/25/22 Manager Interface Goal (LTG) Pt will be able to sleep with 0 interruptions as a result of pain throughout the night. LTG Duration 09/05/22 1 Impairment Unable to tolerate prolonged sitting/standing Short Term Goal (STG) Pt will be able to sit/stand for > = 30 min with left hip pain < = 4/10. STG Duration 07/25/22 Jail Goal (LTG) Pt will be able to sit/stand for > = 45 min with minimal to no left hip pain. LTG Duration 09/05/22 Assessment Summary Assessment Pt is challenged w/ standing 2 -way hip ex of resisted abduction and extension and requires cues for form. She is educated today on core anatomy and relationship between hip adductors, pelvic floor, Transverse abdominus, and diaphragam w/ importance of not breathholding. Pt taught to self-monitor TrA activation medial to ASIS in supine. She has a good feedback response to open book and kitchen sink stretches w/ initial cues for form, an she is challenged w/ coordinating Ball squeeze ex w/ PPT and TrA activation but self- awareness improves w/ practice . Added to HEP: s/l open book stretch, supine ball squeeze w / PPT and TrA focus, Kitchen sink stretch - HO given. Physical Therapy Plan Frequency and Duration Frequency of Treatment 1-2x/wk Duration of treatment (weeks) 12 Plan of Care Start Date 06/13/22 Plan of Care End Date 09/05/22 Therapeutic Interventions Therapeutic Interventions Balance Training,Coordination Training,Gait Training,Home Exercise Program,Joint Mobilizations,Manual Therapy, Neuromuscular Re-education, Orthotic/Prosthetic Management ,Patient/Caregiver Education, Self-Care/Home Management, Sensory Integration,Soft Tissue Mobilization,Taping, Therapeutic Activities, Therapeutic Exercises Modalities Cold Pack/Ice Massage,Electric Stimulation,Hot Packs, Ultrasound Next Visit Focus/Plan Next Note Type Treatment Note Next Visit Plan Review ball squeeze w/ PPT and TrA ex - consider BKFO for core. Review standing 2-way hip and clamshells. Manual -iliopsoas release Core / hip strength ex.
--- NOTE | 2022-06-29 11:43 | PT.OTN ---
Current Diagnoses Pain in left hip (06/29/22) Postlaminectomy syndrome, not elsewhere classified (06/29/22) Physical Therapy Treatment Note PT-OP-A Visit Information Start: 06/13/22 14:35 Freq: Status: Active Protocol: Document 06/29/22 10:06 (Rec: 06/29/22 11:43 [id number]) Out-Patient Physical Therapy Visit Information Visit Information Visit Type Treatment Note Visit Start Time 10:08 Visit Stop Time 10:51 Total Visit Minutes 43 Visit Number 4 Number of SENIOR BEHAVIORAL SCIENTIST Visits 2 PT-OP-B Current Condition Start: 06/13/22 14:35 Freq: Status: Active Protocol: Document 06/13/22 14:35 TH (Rec: 06/13/22 16:33 TH [id number]) Current Condition History of Current Condition Onset Date 01/02/23 History of Current Condition Pt reports scoliosis since childhood. Pt has had chronic LBP and hip pain for years. With recenet laminectomy and L MJ in the last two years. Pt has hx of bilateral ( laterally). Bilat. neuropathy / feet numb. Lateral LE pain is a little better since laminetomy ( 12/2021). Pt also c/o LBP both sides and thoracic spine. The moajority of pain is felt in the left ant/lateral hip. Prior Functional Status Baseline Function- ADL's Independent Baseline Function- Mobility Independent Baseline Function- Work/School Drives Current Functional Impairments (Reported) Functional Limitations- ADL's IND though scrubbing shower, cooking and cleaning dishes difficult. Functional Limitations- Mobility/Gait Prolonged sitting,standing difficult. PT-OP-C Subjective Start: 06/13/22 14:35 Freq: Status: Active Protocol: Document 06/29/22 10:06 (Rec: 06/29/22 11:43 [id number]) OP-PT Subjective Patient Comments Patient Comments Pt reports she had difficulty with some of her HEP. She would like to review them for form. She feels that exercises are helping and appreciates the cueing for correct execution of exercises. PT-OP-J Posture/Palpation/Skin Start: 06/13/22 14:35 Freq: Status: Active Protocol: Document 06/13/22 14:35 TH (Rec: 06/13/22 16:33 TH [id number]) Posture Evaluation Comments Posture Comments Left LE longer since hip surgery ( pt wears lift in right shoe), concave left, right trunk ant.rot. , pelvic obliquity due to scoliosis left higher than right , right hip flexors tight PT-OP-K Range of Motion Start: 06/13/22 14:35 Freq: Status: Active Protocol: Document 06/13/22 14:35 TH (Rec: 06/13/22 16:33 TH [id number]) Lumbar Spine Range of Motion Lumbar Spine Active Comments Flex: limited Ext: WFL Rot r/l : limited PT-OP-L Special Tests Start: 06/13/22 14:35 Freq: Status: Active Protocol: Document 06/13/22 14:35 TH (Rec: 06/13/22 16:33 TH [id number]) Special Tests Lumbar Spine Special Tests MOD OSW Test Results 26 PT-OP-Q Treatments Start: 06/13/22 14:35 Freq: Status: Active Protocol: Document 06/29/22 10:06 SW (Rec: 06/29/22 11:43 SW [id number]) Therapeutic Exercises Supine Exercises TA BKFO Supine Exercise Name TA BKFO Side bilateral Resistance AROM Reps/Minutes x10 each TrA Supine Exercise Name 1.TrA 2. w/ PPT 3. w/ball squeeze (added to HEP) Side bilateral Equipment Used green ball Reps/Minutes 6 min Comments self-monitoring TrA, cues for breathholding Sidelying Exercises Clamshell Side bilateral Equipment Used level 2 TB>no resistance with L side Reps/Minutes x 10 each Comments discomfort with L hip d/t hip replacement issues from ~2 years ago open book stretch Sidelying Exercise Name reviewed for correct execution Side bilateral Reps/Minutes x10 ea Comments positive feedback response Standing Exercises Kitchen sink stretch Standing Exercise Name Reviewed Equipment Used Handrail Reps/Minutes 2 x 30 Comments cued for technique, slight knee bend, feeling a lot of hamstrings tight quad stretch Standing Exercise Name Reviewed Side bilateral Equipment Used WEB DATABASE DEVELOPER prn Reps/Minutes 2x30s Other Exercises bridges Other Exercise Name Bridges Reps/Minutes 2x10 Comments cued for glute activation, maintaining core stability isometric hip abduction Other Exercise Name single leg clamshell - Review next session Comments 2 x 10 green band TA/gluteus med activation Manual Therapy Treatment Soft Tissue Mobilization L hip Body Location L hip Mobilization Type Cross-Friction,Myofascial Release,Strain/Counterstrain Intensity/Depth Moderate Body Position Sidelying Comments STM for congested tissues in L hip, good feedback. PT-OP-T Assessment and Plan Start: 06/13/22 14:35 Freq: Status: Active Protocol: Document 06/29/22 10:06 (Rec: 06/29/22 11:43 [id number]) Physical Therapy Assessment Impairments Impairments Activity Tolerance,Pain Goals 2 Impairment Unable to sleep throughout the night Short Term Goal (STG) Pt will be able to sleep with 50 % less interruptions as a result of pain throughout the night. 06/26/22: Pt reports she awakes from pain as soon as she rolls onto L hip - woke up once last night. STG Duration 07/25/22 Senior Living Goal (LTG) Pt will be able to sleep with 0 interruptions as a result of pain throughout the night. LTG Duration 09/05/22 1 Impairment Unable to tolerate prolonged sitting/standing Short Term Goal (STG) Pt will be able to sit/stand for > = 30 min with left hip pain < = 4/10. STG Duration 07/25/22 Senior Living Goal (LTG) Pt will be able to sit/stand for > = 45 min with minimal to no left hip pain. LTG Duration 09/05/22 Assessment Summary Assessment Continued with TA progression today and supine exercises to avoid increased symptoms in seat/standing position, good carryover with TA, will benefit from continued progression. Visited STM for L hip discomfort, sidelying, moderate pressure for tissue decongestion and to increase circulation. No increase in symptoms throughout session today. Reviewed TA activation verbal and tactile cues, good carryover. Reviewed patient HEP for form d/t patient difficulty with execution at home. Physical Therapy Plan Frequency and Duration Frequency of Treatment 1-2x/wk Duration of treatment (weeks) 12 Plan of Care Start Date 06/13/22 Plan of Care End Date 09/05/22 Therapeutic Interventions Therapeutic Interventions Balance Training,Coordination Training,Gait Training,Home Exercise Program,Joint Mobilizations,Manual Therapy, Neuromuscular Re-education, Orthotic/Prosthetic Management ,Patient/Caregiver Education, Self-Care/Home Management, Sensory Integration,Soft Tissue Mobilization,Taping, Therapeutic Activities, Therapeutic Exercises Modalities Cold Pack/Ice Massage,Electric Stimulation,Hot Packs, Ultrasound Next Visit Focus/Plan Next Note Type Treatment Note Next Visit Plan manual as needed. Check in with HEP. Review standing 2- way hip and clamshells.
--- NOTE | 2022-07-03 12:04 | PT.OTN ---
Current Diagnoses Pain in left hip (07/03/22) Postlaminectomy syndrome, not elsewhere classified (07/03/22) Physical Therapy Treatment Note PT-OP-A Visit Information Start: 06/13/22 14:35 Freq: Status: Active Protocol: Document 07/03/22 09:33 NBM (Rec: 07/03/22 12:03 [facility] [id number]) Out-Patient Physical Therapy Visit Information Visit Information Visit Type Treatment Note Visit Start Time 09:45 Visit Stop Time 10:32 Total Visit Minutes 47 Visit Number 5 Number of OVERCASTER Visits 3 PT-OP-B Current Condition Start: 06/13/22 14:35 Freq: Status: Active Protocol: Document 06/13/22 14:35 TH (Rec: 06/13/22 16:33 TH [id number]) Current Condition History of Current Condition Onset Date 01/02/23 History of Current Condition Pt reports scoliosis since childhood. Pt has had chronic LBP and hip pain for years. With recenet laminectomy and L MJ in the last two years. Pt has hx of bilateral ( laterally). Bilat. neuropathy / feet numb. Lateral LE pain is a little better since laminetomy ( 12/2021). Pt also c/o LBP both sides and thoracic spine. The moajority of pain is felt in the left ant/lateral hip. Prior Functional Status Baseline Function- ADL's Independent Baseline Function- Mobility Independent Baseline Function- Work/School Drives Current Functional Impairments (Reported) Functional Limitations- ADL's IND though scrubbing shower, cooking and cleaning dishes difficult. Functional Limitations- Mobility/Gait Prolonged sitting,standing difficult. PT-OP-C Subjective Start: 06/13/22 14:35 Freq: Status: Active Protocol: Document 07/03/22 09:33 NBM (Rec: 07/03/22 12:03 [facility] [id number]) OP-PT Subjective Patient Comments Patient Comments Pt reports she is wearing her lift in her R shoe consistently. She feels the same, and it's her low back today. She did not have time to do any stretches or ex yet today. She is more aware of her posture. PT-OP-J Posture/Palpation/Skin Start: 06/13/22 14:35 Freq: Status: Active Protocol: Document 06/13/22 14:35 TH (Rec: 06/13/22 16:33 TH [id number]) Posture Evaluation Comments Posture Comments Left LE longer since hip surgery ( pt wears lift in right shoe), concave left, right trunk ant.rot. , pelvic obliquity due to scoliosis left higher than right , right hip flexors tight PT-OP-K Range of Motion Start: 06/13/22 14:35 Freq: Status: Active Protocol: Document 06/13/22 14:35 TH (Rec: 06/13/22 16:33 TH [id number]) Lumbar Spine Range of Motion Lumbar Spine Active Comments Flex: limited Ext: WFL Rot r/l : limited PT-OP-L Special Tests Start: 06/13/22 14:35 Freq: Status: Active Protocol: Document 06/13/22 14:35 TH (Rec: 06/13/22 16:33 TH [id number]) Special Tests Lumbar Spine Special Tests MOD OSW Test Results 26 PT-OP-Q Treatments Start: 06/13/22 14:35 Freq: Status: Active Protocol: Document 07/03/22 09:33 NBM (Rec: 07/03/22 12:03 NBM [id number]) Cardio Equipment Recumbent Elliptical (Biodex) Duration (Minutes) 6 Resistance 3>4 Seat Position 5 Other 30 rpm Therapeutic Exercises Supine Exercises hip flexor stretch Supine Exercise Name sujit position - added to HEP Comments cues for PPT first, positive feedback response Sidelying Exercises Clamshell Side bilateral Equipment Used no resistance bilaterally today Reps/Minutes x 10 each Comments cues for pelvic rocking. open book stretch Side bilateral Reps/Minutes x10 ea Comments positive feedback response Standing Exercises hip hike Side bilateral Equipment Used 4 step, handrail Reps/Minutes 2x10 reps Comments RLE stance feels good hip extension Side bilateral Resistance Lvl 3 Tb (green) Equipment Used handrail, 4 step Reps/Minutes 2x10 ea Comments vc for lumbar hyperextension, pt challenged w/ R DF and knee ext-used step Kitchen sink stretch Equipment Used Handrail Reps/Minutes 2 x 30 Comments good form, positive feedback response hip abduction Side bilateral Resistance Lvl 3 Tb (green) Equipment Used handrail Reps/Minutes 2x10 ea Comments R>L stance leg challenging Manual Therapy Treatment Soft Tissue Mobilization L hip Body Location hip flexors (Quads, TFL, ITB) Mobilization Type Cross-Friction,Instrument Assisted,Myofascial Release, Rolling,Strain/Counterstrain, Strumming,Other Intensity/Depth Moderate Body Position Sidelying Comments Light edema massage. Gentle IASTM w/rolling pin - added to HEP Self-Care/Home Management Treatment Education Other Education Pt i/s in gentle self-STM w/ rolling pin - HO given. Added to HEP: supine hip flexor stretch (Sujit) - HO given. PT-OP-R Modalities Start: 06/13/22 14:35 Freq: Status: Active Protocol: Document 07/03/22 09:33 NB (Rec: 07/03/22 12:03 [facility] [id number]) Hot Pack/Cold Pack Treatment Cold Pack Location L hip Patient Position Hooklying Treatment Duration (minutes) 10 Patient Tolerance Fair Comments Pt reports it felt weird. PT-OP-T Assessment and Plan Start: 06/13/22 14:35 Freq: Status: Active Protocol: Document 07/03/22 09:33 NB (Rec: 07/03/22 12:03 [facility] [id number]) Physical Therapy Assessment Impairments Impairments Activity Tolerance,Pain Goals 2 Impairment Unable to sleep throughout the night Short Term Goal (STG) Pt will be able to sleep with 50 % less interruptions as a result of pain throughout the night. 06/26/22: Pt reports she awakes from pain as soon as she rolls onto L hip - woke up once last night. STG Duration 07/25/22 Diplomatic Interpreter/Translator Goal (LTG) Pt will be able to sleep with 0 interruptions as a result of pain throughout the night. LTG Duration 09/05/22 1 Impairment Unable to tolerate prolonged sitting/standing Short Term Goal (STG) Pt will be able to sit/stand for > = 30 min with left hip pain < = 4/10. STG Duration 07/25/22 Diplomatic Interpreter/Translator Goal (LTG) Pt will be able to sit/stand for > = 45 min with minimal to no left hip pain. LTG Duration 09/05/22 Assessment Summary Assessment Dianna is consistently challenged w/ low back pain with transitions and is encouraged to use TrA activation and no breathholding with transitions . She is challenged in sidelying with hip ER and cued to minimize pelvic rocking and reduce range with improved self-awareness. Discussed morning HEP hip flexor stretching and open book before getting out of bed. She is instructed in gentle self- STM w/rolling pin - HO given. Added to HEP: supine hip flexor stretch (Sujit) - HO given. Physical Therapy Plan Frequency and Duration Frequency of Treatment 1-2x/wk Duration of treatment (weeks) 12 Plan of Care Start Date 06/13/22 Plan of Care End Date 09/05/22 Therapeutic Interventions Therapeutic Interventions Balance Training,Coordination Training,Gait Training,Home Exercise Program,Joint Mobilizations,Manual Therapy, Neuromuscular Re-education, Orthotic/Prosthetic Management ,Patient/Caregiver Education, Self-Care/Home Management, Sensory Integration,Soft Tissue Mobilization,Taping, Therapeutic Activities, Therapeutic Exercises Modalities Cold Pack/Ice Massage,Electric Stimulation,Hot Packs, Ultrasound Next Visit Focus/Plan Next Note Type Treatment Note Next Visit Plan manual as needed. Check in with HEP and self-STM. Review standing 2-way hip and clamshells (s/l and supine). Consider ice to lumbar.
--- NOTE | 2022-07-05 13:34 | PT.OTN ---
Current Diagnoses Pain in left hip (07/05/22) Postlaminectomy syndrome, not elsewhere classified (07/05/22) Physical Therapy Treatment Note PT-OP-A Visit Information Start: 06/13/22 14:35 Freq: Status: Active Protocol: Document 07/05/22 11:38 [facility] (Rec: 07/05/22 13:34 [facility] [id number]) Out-Patient Physical Therapy Visit Information Visit Information Visit Type Treatment Note Visit Start Time 11:35 Visit Stop Time 12:30 Total Visit Minutes 55 Visit Number 6 Number of ROUGH RICE GRADER Visits 0 PT-OP-B Current Condition Start: 06/13/22 14:35 Freq: Status: Active Protocol: Document 06/13/22 14:35 TH (Rec: 06/13/22 16:33 TH [id number]) Current Condition History of Current Condition Onset Date 01/02/23 History of Current Condition Pt reports scoliosis since childhood. Pt has had chronic LBP and hip pain for years. With recenet laminectomy and L MJ in the last two years. Pt has hx of bilateral ( laterally). Bilat. neuropathy / feet numb. Lateral LE pain is a little better since laminetomy ( 12/2021). Pt also c/o LBP both sides and thoracic spine. The moajority of pain is felt in the left ant/lateral hip. Prior Functional Status Baseline Function- ADL's Independent Baseline Function- Mobility Independent Baseline Function- Work/School Drives Current Functional Impairments (Reported) Functional Limitations- ADL's IND though scrubbing shower, cooking and cleaning dishes difficult. Functional Limitations- Mobility/Gait Prolonged sitting,standing difficult. PT-OP-C Subjective Start: 06/13/22 14:35 Freq: Status: Active Protocol: Document 07/05/22 11:38 [facility] (Rec: 07/05/22 13:34 [facility] [id number]) OP-PT Subjective Patient Comments Patient Comments Pt reports no change in pain. she feels like the kitchen sink stretch helps. She hasn't been doing her exercises much . PT-OP-J Posture/Palpation/Skin Start: 06/13/22 14:35 Freq: Status: Active Protocol: Document 06/13/22 14:35 TH (Rec: 06/13/22 16:33 TH [id number]) Posture Evaluation Comments Posture Comments Left LE longer since hip surgery ( pt wears lift in right shoe), concave left, right trunk ant.rot. , pelvic obliquity due to scoliosis left higher than right , right hip flexors tight PT-OP-K Range of Motion Start: 06/13/22 14:35 Freq: Status: Active Protocol: Document 06/13/22 14:35 TH (Rec: 06/13/22 16:33 TH [id number]) Lumbar Spine Range of Motion Lumbar Spine Active Comments Flex: limited Ext: WFL Rot r/l : limited PT-OP-L Special Tests Start: 06/13/22 14:35 Freq: Status: Active Protocol: Document 06/13/22 14:35 TH (Rec: 06/13/22 16:33 TH [id number]) Special Tests Lumbar Spine Special Tests MOD OSW Test Results 26 PT-OP-Q Treatments Start: 06/13/22 14:35 Freq: Status: Active Protocol: Document 07/05/22 11:38 [facility] (Rec: 07/05/22 13:34 [facility] [id number]) Cardio Equipment Recumbent Elliptical ([employer] [place]) Duration (Minutes) 6 Resistance 4 Seat Position 5 Other at least 30 rpm Therapeutic Exercises Supine Exercises TrA Supine Exercise Name SL flex, add, ER DF isometric Side bilateral Reps/Minutes 30 sec x2 Comments inc time for set up and position Self-Care/Home Management Treatment Education Other Education 5 min: edu re: importance of current exercise given. Discussed talking to mD in a couple weeks about abdomen feeling uncomfortable at times . Disucssed anatomy of iliacus and psoas PT-OP-R Modalities Start: 06/13/22 14:35 Freq: Status: Active Protocol: Document 07/05/22 11:38 [facility] (Rec: 07/05/22 13:34 [facility] [id number]) Hot Pack/Cold Pack Treatment Cold Pack Location L hip Patient Position Hooklying Treatment Duration (minutes) 10 PT-OP-T Assessment and Plan Start: 06/13/22 14:35 Freq: Status: Active Protocol: Document 07/05/22 11:38 [facility] (Rec: 07/05/22 13:34 [facility] [id number]) Physical Therapy Assessment Goals 2 Impairment Unable to sleep throughout the night Short Term Goal (STG) Pt will be able to sleep with 50 % less interruptions as a result of pain throughout the night. 06/26/22: Pt reports she awakes from pain as soon as she rolls onto L hip - woke up once last night. STG Duration 07/25/22 Durability Technician Goal (LTG) Pt will be able to sleep with 0 interruptions as a result of pain throughout the night. LTG Duration 09/05/22 1 Impairment Unable to tolerate prolonged sitting/standing Short Term Goal (STG) Pt will be able to sit/stand for > = 30 min with left hip pain < = 4/10. STG Duration 07/25/22 Durability Technician Goal (LTG) Pt will be able to sit/stand for > = 45 min with minimal to no left hip pain. LTG Duration 09/05/22 Assessment Summary Assessment Pt had improved movement of L hip w/manual treatmetn and educated on improtance of cont that exercise at home to maintian this. She has significant ant hip restrictions and her scar tissue may be part of this. Physical Therapy Plan Frequency and Duration Frequency of Treatment 1-2x/wk Duration of treatment (weeks) 12 Plan of Care Start Date 06/13/22 Plan of Care End Date 09/05/22 Next Visit Focus/Plan Next Note Type Treatment Note Next Visit Plan work hip joint mobility L; STM to iliacus & psoas & work on innominate and sacrum mobility .
--- NOTE | 2022-07-11 18:08 | PT.OTN ---
Current Diagnoses Pain in left hip (07/11/22) Postlaminectomy syndrome, not elsewhere classified (07/11/22) Physical Therapy Treatment Note PT-OP-A Visit Information Start: 06/13/22 14:35 Freq: Status: Active Protocol: Document 07/11/22 14:06 [facility] (Rec: 07/11/22 18:08 [facility] [id number]) Out-Patient Physical Therapy Visit Information Visit Information Visit Type Treatment Note Visit Start Time 15:16 Visit Stop Time 16:04 Total Visit Minutes 48 Visit Number 7 Number of COMPUTER SYSTEMS TECHNICIAN Visits 0 PT-OP-B Current Condition Start: 06/13/22 14:35 Freq: Status: Active Protocol: Document 06/13/22 14:35 TH (Rec: 06/13/22 16:33 TH [id number]) Current Condition History of Current Condition Onset Date 01/02/23 History of Current Condition Pt reports scoliosis since childhood. Pt has had chronic LBP and hip pain for years. With recenet laminectomy and L MJ in the last two years. Pt has hx of bilateral ( laterally). Bilat. neuropathy / feet numb. Lateral LE pain is a little better since laminetomy ( 12/2021). Pt also c/o LBP both sides and thoracic spine. The moajority of pain is felt in the left ant/lateral hip. Prior Functional Status Baseline Function- ADL's Independent Baseline Function- Mobility Independent Baseline Function- Work/School Drives Current Functional Impairments (Reported) Functional Limitations- ADL's IND though scrubbing shower, cooking and cleaning dishes difficult. Functional Limitations- Mobility/Gait Prolonged sitting,standing difficult. PT-OP-C Subjective Start: 06/13/22 14:35 Freq: Status: Active Protocol: Document 07/11/22 14:06 [facility] (Rec: 07/11/22 18:08 [facility] [id number]) OP-PT Subjective Patient Comments Patient Comments Pt reports she has up/down days. Today she has soreness in L lat thigh, L hip and LB PT-OP-J Posture/Palpation/Skin Start: 06/13/22 14:35 Freq: Status: Active Protocol: Document 06/13/22 14:35 TH (Rec: 06/13/22 16:33 TH [id number]) Posture Evaluation Comments Posture Comments Left LE longer since hip surgery ( pt wears lift in right shoe), concave left, right trunk ant.rot. , pelvic obliquity due to scoliosis left higher than right , right hip flexors tight PT-OP-K Range of Motion Start: 06/13/22 14:35 Freq: Status: Active Protocol: Document 06/13/22 14:35 TH (Rec: 06/13/22 16:33 TH [id number]) Lumbar Spine Range of Motion Lumbar Spine Active Comments Flex: limited Ext: WFL Rot r/l : limited PT-OP-L Special Tests Start: 06/13/22 14:35 Freq: Status: Active Protocol: Document 06/13/22 14:35 TH (Rec: 06/13/22 16:33 TH [id number]) Special Tests Lumbar Spine Special Tests MOD OSW Test Results 26 PT-OP-Q Treatments Start: 06/13/22 14:35 Freq: Status: Active Protocol: Document 07/11/22 14:06 [facility] (Rec: 07/11/22 18:08 [facility] [id number]) Therapeutic Exercises Standing Exercises gait at wall Standing Exercise Name no heel raise Side bilateral Reps/Minutes 10 secx2 Manual Therapy Treatment Soft Tissue Mobilization lumbar Body Location L >R paraspinals, QL; scar Mobilization Type Myofascial Release,Strumming, Sustained Pressure Intensity/Depth Moderate Body Position Sidelying Comments plunger on scar; FM w/dep PNF Joint Mobilizations lumbar Comments gapping L2-5 FM transverse L L5; R L 1-4 FM Neuro Re-Education Treatment Other Activities PNF Comments 1. post elevation COI for eccentric lengthening into ant dep then sustained hold into ant dep B 2. ant elevation sustained holds progressed to COI B 3. post dep L sustained hold to COI PT-OP-R Modalities Start: 06/13/22 14:35 Freq: Status: Active Protocol: Document 07/05/22 11:38 [facility] (Rec: 07/05/22 13:34 [facility] [id number]) Hot Pack/Cold Pack Treatment Cold Pack Location L hip Patient Position Hooklying Treatment Duration (minutes) 10 PT-OP-T Assessment and Plan Start: 06/13/22 14:35 Freq: Status: Active Protocol: Document 07/11/22 14:06 [facility] (Rec: 07/11/22 18:08 [facility] [id number]) Physical Therapy Assessment Goals 2 Impairment Unable to sleep throughout the night Short Term Goal (STG) Pt will be able to sleep with 50 % less interruptions as a result of pain throughout the night. 06/26/22: Pt reports she awakes from pain as soon as she rolls onto L hip - woke up once last night. STG Duration 07/25/22 Alf Goal (LTG) Pt will be able to sleep with 0 interruptions as a result of pain throughout the night. LTG Duration 09/05/22 1 Impairment Unable to tolerate prolonged sitting/standing Short Term Goal (STG) Pt will be able to sit/stand for > = 30 min with left hip pain < = 4/10. STG Duration 07/25/22 Shop Mechanic Goal (LTG) Pt will be able to sit/stand for > = 45 min with minimal to no left hip pain. LTG Duration 09/05/22 Assessment Summary Assessment Pt had min pain after manual treatment w/standing and walking and L lat LE pain was improved. She did note pain w/ bending over to put on shoes though. Physical Therapy Plan Frequency and Duration Frequency of Treatment 1-2x/wk Duration of treatment (weeks) 12 Plan of Care Start Date 06/13/22 Plan of Care End Date 09/05/22 Next Visit Focus/Plan Next Note Type Treatment Note Next Visit Plan work hip joint mobility L; STM to iliacus & psoas & work on innominate and sacrum mobility .
--- NOTE | 2022-07-13 09:35 | PT.OTN ---
Current Diagnoses Pain in left hip (07/13/22) Postlaminectomy syndrome, not elsewhere classified (07/13/22) Physical Therapy Treatment Note PT-OP-A Visit Information Start: 06/13/22 14:35 Freq: Status: Active Protocol: Document 07/13/22 09:24 [facility] (Rec: 07/13/22 09:35 [facility] [id number]) Out-Patient Physical Therapy Visit Information Visit Information Visit Type Treatment Note Visit Note 10/12 Visit Start Time 08:20 Visit Stop Time 09:00 Total Visit Minutes 40 Visit Number 8 Number of KICK PRESS OPERATOR Visits 0 PT-OP-B Current Condition Start: 06/13/22 14:35 Freq: Status: Active Protocol: Document 06/13/22 14:35 TH (Rec: 06/13/22 16:33 TH [id number]) Current Condition History of Current Condition Onset Date 01/02/23 History of Current Condition Pt reports scoliosis since childhood. Pt has had chronic LBP and hip pain for years. With recenet laminectomy and L MJ in the last two years. Pt has hx of bilateral ( laterally). Bilat. neuropathy / feet numb. Lateral LE pain is a little better since laminetomy ( 12/2021). Pt also c/o LBP both sides and thoracic spine. The moajority of pain is felt in the left ant/lateral hip. Prior Functional Status Baseline Function- ADL's Independent Baseline Function- Mobility Independent Baseline Function- Work/School Drives Current Functional Impairments (Reported) Functional Limitations- ADL's IND though scrubbing shower, cooking and cleaning dishes difficult. Functional Limitations- Mobility/Gait Prolonged sitting,standing difficult. PT-OP-C Subjective Start: 06/13/22 14:35 Freq: Status: Active Protocol: Document 07/13/22 09:24 [facility] (Rec: 07/13/22 09:35 [facility] [id number]) OP-PT Subjective Patient Comments Patient Comments Pt reports she noticed she was walking a lot easier w/the dog she is watching after last session. She did note seh was more sore in L hip and thigh though PT-OP-J Posture/Palpation/Skin Start: 06/13/22 14:35 Freq: Status: Active Protocol: Document 06/13/22 14:35 TH (Rec: 06/13/22 16:33 TH [id number]) Posture Evaluation Comments Posture Comments Left LE longer since hip surgery ( pt wears lift in right shoe), concave left, right trunk ant.rot. , pelvic obliquity due to scoliosis left higher than right , right hip flexors tight PT-OP-K Range of Motion Start: 06/13/22 14:35 Freq: Status: Active Protocol: Document 06/13/22 14:35 TH (Rec: 06/13/22 16:33 TH [id number]) Lumbar Spine Range of Motion Lumbar Spine Active Comments Flex: limited Ext: WFL Rot r/l : limited PT-OP-L Special Tests Start: 06/13/22 14:35 Freq: Status: Active Protocol: Document 06/13/22 14:35 TH (Rec: 06/13/22 16:33 TH [id number]) Special Tests Lumbar Spine Special Tests MOD OSW Test Results 26 PT-OP-Q Treatments Start: 06/13/22 14:35 Freq: Status: Active Protocol: Document 07/13/22 09:24 [facility] (Rec: 07/13/22 09:35 [facility] [id number]) Therapeutic Exercises Standing Exercises gait at wall Standing Exercise Name no heel raise x1 then x1 w/ heel raise Side bilateral Reps/Minutes 10 sec ea Manual Therapy Treatment Soft Tissue Mobilization lumbar Body Location L >R paraspinals scar Mobilization Type Myofascial Release,Strumming, Sustained Pressure Intensity/Depth Moderate Body Position Prone L hip Body Location L iliacus Mobilization Type Myofascial Release,Rolling, Strumming Comments w/AAROM hip flex Joint Mobilizations sacrum Joint caudal FM w/knee flex B Body Position Prone pubic bone Joint L inf FM hip Grade II Comments 1.L inf FM 2. B hip on axis ER FM prone Self-Care/Home Management Treatment Education Other Education edu re: going to MD or calling MD if nausea happens again. Discussed w/pt talking to her primary who does acupuncture as this may be helpful w/her chronic pain. Edu on different options re: chronic pain providers in the area x6 min Activities Self-Care/Home Management Activities BP 128/74 HR:76 O2:98% PT-OP-R Modalities Start: 06/13/22 14:35 Freq: Status: Active Protocol: Document 07/05/22 11:38 [facility] (Rec: 07/05/22 13:34 [facility] [id number]) Hot Pack/Cold Pack Treatment Cold Pack Location L hip Patient Position Hooklying Treatment Duration (minutes) 10 PT-OP-T Assessment and Plan Start: 06/13/22 14:35 Freq: Status: Active Protocol: Document 07/13/22 09:24 [facility] (Rec: 07/13/22 09:35 [facility] [id number]) Physical Therapy Assessment Goals 2 Impairment Unable to sleep throughout the night Short Term Goal (STG) Pt will be able to sleep with 50 % less interruptions as a result of pain throughout the night. 06/26/22: Pt reports she awakes from pain as soon as she rolls onto L hip - woke up once last night. STG Duration 07/25/22 Mica Machine Operator Goal (LTG) Pt will be able to sleep with 0 interruptions as a result of pain throughout the night. LTG Duration 09/05/22 1 Impairment Unable to tolerate prolonged sitting/standing Short Term Goal (STG) Pt will be able to sit/stand for > = 30 min with left hip pain < = 4/10. STG Duration 07/25/22 Mica Machine Operator Goal (LTG) Pt will be able to sit/stand for > = 45 min with minimal to no left hip pain. LTG Duration 09/05/22 Assessment Summary Assessment pt had improved L hip flex and B hip ER after manual treatment. Pt did well with exercise and was able to add heel raise to gait at wall. Pt felt nausea after being prone but it subsided w/drinking water and sitting EOB. All vitals wNL Physical Therapy Plan Frequency and Duration Frequency of Treatment 1-2x/wk Duration of treatment (weeks) 12 Plan of Care Start Date 06/13/22 Plan of Care End Date 09/05/22 Next Visit Focus/Plan Next Note Type Treatment Note Next Visit Plan work hip joint mobility L; STM to iliacus & psoas & work on innominate and sacrum mobility .
--- NOTE | 2022-07-17 13:15 | PT.OTN ---
Current Diagnoses Pain in left hip (07/17/22) Postlaminectomy syndrome, not elsewhere classified (07/17/22) Physical Therapy Treatment Note PT-OP-A Visit Information Start: 06/13/22 14:35 Freq: Status: Active Protocol: Document 07/17/22 11:34 [facility] (Rec: 07/17/22 12:20 NB [id number]) Out-Patient Physical Therapy Visit Information Visit Information Visit Type Treatment Note Visit Note 11/12 Visit Start Time 11:32 Visit Stop Time 12:18 Total Visit Minutes 46 Visit Number 9 Number of GUEST RELATIONS EXECUTIVE Visits 1 Precautions Precautions [place] - L ear preferred Status: Active PT-OP-B Current Condition Start: 06/13/22 14:35 Freq: Status: Active Protocol: Document 06/13/22 14:35 TH (Rec: 06/13/22 16:33 TH [id number]) Current Condition History of Current Condition Onset Date 01/02/23 History of Current Condition Pt reports scoliosis since childhood. Pt has had chronic LBP and hip pain for years. With recenet laminectomy and L MJ in the last two years. Pt has hx of bilateral ( laterally). Bilat. neuropathy / feet numb. Lateral LE pain is a little better since laminetomy ( 12/2021). Pt also c/o LBP both sides and thoracic spine. The moajority of pain is felt in the left ant/lateral hip. Prior Functional Status Baseline Function- ADL's Independent Baseline Function- Mobility Independent Baseline Function- Work/School Drives Current Functional Impairments (Reported) Functional Limitations- ADL's IND though scrubbing shower, cooking and cleaning dishes difficult. Functional Limitations- Mobility/Gait Prolonged sitting,standing difficult. PT-OP-C Subjective Start: 06/13/22 14:35 Freq: Status: Active Protocol: Document 07/17/22 11:34 [facility] (Rec: 07/17/22 12:20 [facility] [id number]) OP-PT Subjective Patient Comments Patient Comments Pt states there has been improvement since last visit when PT worked on front of L thigh and now her hip moves more and she has more extension. She states she only ex today was holding the garden hose. She states sleep is still very bad unless she uses cannabis 3-4x/week If I don't take something I don't sleep. PT-OP-J Posture/Palpation/Skin Start: 06/13/22 14:35 Freq: Status: Active Protocol: Document 06/13/22 14:35 TH (Rec: 06/13/22 16:33 TH [id number]) Posture Evaluation Comments Posture Comments Left LE longer since hip surgery ( pt wears lift in right shoe), concave left, right trunk ant.rot. , pelvic obliquity due to scoliosis left higher than right , right hip flexors tight PT-OP-K Range of Motion Start: 06/13/22 14:35 Freq: Status: Active Protocol: Document 06/13/22 14:35 TH (Rec: 06/13/22 16:33 TH [id number]) Lumbar Spine Range of Motion Lumbar Spine Active Comments Flex: limited Ext: WFL Rot r/l : limited PT-OP-L Special Tests Start: 06/13/22 14:35 Freq: Status: Active Protocol: Document 06/13/22 14:35 TH (Rec: 06/13/22 16:33 TH [id number]) Special Tests Lumbar Spine Special Tests MOD OSW Test Results 26 PT-OP-Q Treatments Start: 06/13/22 14:35 Freq: Status: Active Protocol: Document 07/17/22 11:34 [facility] (Rec: 07/17/22 12:20 [facility] [id number]) Cardio Equipment Recumbent Elliptical ([employer]) Duration (Minutes) 6 Resistance 4 Seat Position 5 Other =/>30 rpm. Pt c/o L hip add pn ~4' resolved w/ cue for push thru heel; R kn Therapeutic Exercises Sidelying Exercises open book stretch Side bilateral Reps/Minutes x10 ea Comments positive feedback response for LBP and pecs Standing Exercises hip flexor stretch Standing Exercise Name lunge at wall -hip flexor and calves Side bilateral Equipment Used handrail Reps/Minutes x30s ea Comments cue for neutral foot gait at wall Standing Exercise Name no heel raise x1 then x1 w/ heel raise Side bilateral Reps/Minutes 10 sec ea hip extension Side bilateral Resistance Lvl 3 Tb (green) Equipment Used handrail, use 4 step for longer LLE Reps/Minutes 2x10 ea Comments vc for lumbar hyperextension, pt challenged w/ R DF and knee ext-used step Kitchen sink stretch Equipment Used Handrail Reps/Minutes 2 x 30 Comments good form, positive feedback response hip abduction Side bilateral Resistance Lvl 3 Tb (green) Equipment Used handrail Reps/Minutes 2x10 ea Comments R>L stance leg challenging quad stretch Standing Exercise Name Reviewed Side bilateral Equipment Used PORCELAIN BUILDUP ASSISTANT prn Reps/Minutes 2x30s Comments cue for lumbar hyperextension Manual Therapy Treatment Soft Tissue Mobilization L hip Body Location L iliacus Mobilization Type Myofascial Release,Rolling, Strumming,Other Comments iliopsoas release, compared to R per pt request, R not tight . PT-OP-R Modalities Start: 06/13/22 14:35 Freq: Status: Active Protocol: Document 07/05/22 11:38 [facility] (Rec: 07/05/22 13:34 [facility] [id number]) Hot Pack/Cold Pack Treatment Cold Pack Location L hip Patient Position Hooklying Treatment Duration (minutes) 10 PT-OP-T Assessment and Plan Start: 06/13/22 14:35 Freq: Status: Active Protocol: Document 07/17/22 11:34 [facility] (Rec: 07/17/22 12:20 NB [id number]) Physical Therapy Assessment Goals 2 Impairment Unable to sleep throughout the night Short Term Goal (STG) Pt will be able to sleep with 50 % less interruptions as a result of pain throughout the night. 06/26/22: Pt reports she awakes from pain as soon as she rolls onto L hip - woke up once last night. STG Duration 07/25/22 Die Maker Trim Goal (LTG) Pt will be able to sleep with 0 interruptions as a result of pain throughout the night. LTG Duration 09/05/22 1 Impairment Unable to tolerate prolonged sitting/standing Short Term Goal (STG) Pt will be able to sit/stand for > = 30 min with left hip pain < = 4/10. STG Duration 07/25/22 Die Maker Trim Goal (LTG) Pt will be able to sit/stand for > = 45 min with minimal to no left hip pain. LTG Duration 09/05/22 Assessment Summary Assessment Pt requires cues for lumbar hyperextension with standing hip extension, and is challenged with R DF and knee extension; ex is modified with 4 step under R for longer LLE. L hip abduction is more challenging than L. Palpable tension to L iliopsoas improves w/ manual release and pt has postitive feedback response. Physical Therapy Plan Frequency and Duration Frequency of Treatment 1-2x/wk Duration of treatment (weeks) 12 Plan of Care Start Date 06/13/22 Plan of Care End Date 09/05/22 Next Visit Focus/Plan Next Note Type Treatment Note Next Visit Plan work hip joint mobility L; STM to iliacus & psoas & work on innominate and sacrum mobility .
--- NOTE | 2022-07-18 18:04 | PT.OTN ---
Current Diagnoses Pain in left hip (07/18/22) Postlaminectomy syndrome, not elsewhere classified (07/18/22) Physical Therapy Treatment Note PT-OP-A Visit Information Start: 06/13/22 14:35 Freq: Status: Active Protocol: Document 07/18/22 15:20 [facility] (Rec: 07/18/22 18:04 [facility] [id number]) Out-Patient Physical Therapy Visit Information Visit Information Visit Type Treatment Note Visit Note 03/14 Visit Start Time 15:18 Visit Stop Time 16:10 Total Visit Minutes 52 Visit Number 10 Number of AUTO FORMER MACHINE OPERATOR Visits 0 PT-OP-B Current Condition Start: 06/13/22 14:35 Freq: Status: Active Protocol: Document 06/13/22 14:35 TH (Rec: 06/13/22 16:33 TH [id number]) Current Condition History of Current Condition Onset Date 01/02/23 History of Current Condition Pt reports scoliosis since childhood. Pt has had chronic LBP and hip pain for years. With recenet laminectomy and L MJ in the last two years. Pt has hx of bilateral ( laterally). Bilat. neuropathy / feet numb. Lateral LE pain is a little better since laminetomy ( 12/2021). Pt also c/o LBP both sides and thoracic spine. The moajority of pain is felt in the left ant/lateral hip. Prior Functional Status Baseline Function- ADL's Independent Baseline Function- Mobility Independent Baseline Function- Work/School Drives Current Functional Impairments (Reported) Functional Limitations- ADL's IND though scrubbing shower, cooking and cleaning dishes difficult. Functional Limitations- Mobility/Gait Prolonged sitting,standing difficult. PT-OP-C Subjective Start: 06/13/22 14:35 Freq: Status: Active Protocol: Document 07/18/22 15:20 [facility] (Rec: 07/18/22 18:04 [facility] [id number]) OP-PT Subjective Patient Comments Patient Comments Pt reports she has not been waking up d/t apin in LE during night recently. Doesn't sleep well d/t sleep issues but not pain. Pt reports she feels like [facility] is walking better w/manual work. Patient Reported Progress Improving PT-OP-J Posture/Palpation/Skin Start: 06/13/22 14:35 Freq: Status: Active Protocol: Document 06/13/22 14:35 TH (Rec: 06/13/22 16:33 TH [id number]) Posture Evaluation Comments Posture Comments Left LE longer since hip surgery ( pt wears lift in right shoe), concave left, right trunk ant.rot. , pelvic obliquity due to scoliosis left higher than right , right hip flexors tight PT-OP-K Range of Motion Start: 06/13/22 14:35 Freq: Status: Active Protocol: Document 06/13/22 14:35 TH (Rec: 06/13/22 16:33 TH [id number]) Lumbar Spine Range of Motion Lumbar Spine Active Comments Flex: limited Ext: WFL Rot r/l : limited PT-OP-L Special Tests Start: 06/13/22 14:35 Freq: Status: Active Protocol: Document 06/13/22 14:35 TH (Rec: 06/13/22 16:33 TH [id number]) Special Tests Lumbar Spine Special Tests MOD OSW Test Results 26 PT-OP-Q Treatments Start: 06/13/22 14:35 Freq: Status: Active Protocol: Document 07/18/22 15:20 [facility] (Rec: 07/18/22 18:04 [facility] [id number]) Therapeutic Exercises Other Exercises quadruped Other Exercise Name 1. alt UE reach 2. alt LE slide back Side bilateral Reps/Minutes 10 ea Manual Therapy Treatment Soft Tissue Mobilization add Body Location L Mobilization Type Rolling Intensity/Depth Moderate Body Position Hooklying Comments w/ER FM L hip Body Location L iliacus & pirformis (ant) & psoas tendon Mobilization Type Myofascial Release,Rolling, Strumming,Other Comments w/AAROM hip flex Joint Mobilizations pubic bone Joint L inf & AP FM hip Comments 1.L inf FM 2. L on axis IR FM hooklying PT-OP-R Modalities Start: 06/13/22 14:35 Freq: Status: Active Protocol: Document 07/18/22 15:20 [facility] (Rec: 07/18/22 18:04 [facility] [id number]) Hot Pack/Cold Pack Treatment Cold Pack Location L hip Patient Position Hooklying Treatment Duration (minutes) 10 PT-OP-T Assessment and Plan Start: 06/13/22 14:35 Freq: Status: Active Protocol: Document 07/18/22 15:20 [facility] (Rec: 07/18/22 18:04 [facility] [id number]) Physical Therapy Assessment Goals 2 Impairment Unable to sleep throughout the night Short Term Goal (STG) Pt will be able to sleep with 50 % less interruptions as a result of pain throughout the night. 06/26/22: Pt reports she awakes from pain as soon as she rolls onto L hip - woke up once last night. 07/18-sleeping has been better for the past few weeks re: pain but still awake d/t sleep issues STG Duration 07/25/22 [facility] Goal (LTG) Pt will be able to sleep with 0 interruptions as a result of pain throughout the night. LTG Duration 09/05/22 1 Impairment Unable to tolerate prolonged sitting/standing Short Term Goal (STG) Pt will be able to sit/stand for > = 30 min with left hip pain < = 06/12. 07/18-can stand no greater than 15 to 20min 09/11 ; sitting uncomfortable w/o much time STG Duration 07/25/22 [place] [facility] Technician Goal (LTG) Pt will be able to sit/stand for > = 45 min with minimal to no left hip pain. LTG Duration 09/05/22 Assessment Summary Assessment Pt had much improved hip IR after manual on L sie along w/ ER. She requried a lot of cues w/quadruped exercises to wrok on lumbar stability. Physical Therapy Plan Frequency and Duration Frequency of Treatment 1-2x/wk Duration of treatment (weeks) 12 Plan of Care Start Date 06/13/22 Plan of Care End Date 09/05/22 Next Visit Focus/Plan Next Note Type Treatment Note Next Visit Plan look at sitting position and manual to improve that
--- NOTE | 2022-07-24 11:49 | PT.OTN ---
Current Diagnoses Pain in left hip (07/24/22) Postlaminectomy syndrome, not elsewhere classified (07/24/22) Physical Therapy Treatment Note PT-OP-A Visit Information Start: 06/13/22 14:35 Freq: Status: Active Protocol: Document 07/24/22 10:33 [facility] (Rec: 07/24/22 11:48 [facility] [id number]) Out-Patient Physical Therapy Visit Information Visit Information Visit Type Treatment Note Visit Note 04/14 Visit Start Time 10:30 Visit Stop Time 11:17 Total Visit Minutes 47 Visit Number 11 Number of CERTIFIED PEER SPECIALIST Visits 1 PT-OP-B Current Condition Start: 06/13/22 14:35 Freq: Status: Active Protocol: Document 06/13/22 14:35 TH (Rec: 06/13/22 16:33 TH [id number]) Current Condition History of Current Condition Onset Date 01/02/23 History of Current Condition Pt reports scoliosis since childhood. Pt has had chronic LBP and hip pain for years. With recenet laminectomy and L MJ in the last two years. Pt has hx of bilateral ( laterally). Bilat. neuropathy / feet numb. Lateral LE pain is a little better since laminetomy ( 12/2021). Pt also c/o LBP both sides and thoracic spine. The moajority of pain is felt in the left ant/lateral hip. Prior Functional Status Baseline Function- ADL's Independent Baseline Function- Mobility Independent Baseline Function- Work/School Drives Current Functional Impairments (Reported) Functional Limitations- ADL's IND though scrubbing shower, cooking and cleaning dishes difficult. Functional Limitations- Mobility/Gait Prolonged sitting,standing difficult. PT-OP-C Subjective Start: 06/13/22 14:35 Freq: Status: Active Protocol: Document 07/24/22 10:33 [facility] (Rec: 07/24/22 11:48 [facility] [id number]) OP-PT Subjective Patient Comments Patient Comments Pt reports she has been very sore since her last PT visit. Ice has not helped at all but stretching has. She wants to focus on ex's today. Pt has one lift in on R shoe but states she should have two lifts, but she doesn't have many shoes that can handle two . PT-OP-J Posture/Palpation/Skin Start: 06/13/22 14:35 Freq: Status: Active Protocol: Document 06/13/22 14:35 TH (Rec: 06/13/22 16:33 TH [id number]) Posture Evaluation Comments Posture Comments Left LE longer since hip surgery ( pt wears lift in right shoe), concave left, right trunk ant.rot. , pelvic obliquity due to scoliosis left higher than right , right hip flexors tight PT-OP-K Range of Motion Start: 06/13/22 14:35 Freq: Status: Active Protocol: Document 06/13/22 14:35 TH (Rec: 06/13/22 16:33 TH [id number]) Lumbar Spine Range of Motion Lumbar Spine Active Comments Flex: limited Ext: WFL Rot r/l : limited PT-OP-L Special Tests Start: 06/13/22 14:35 Freq: Status: Active Protocol: Document 06/13/22 14:35 TH (Rec: 06/13/22 16:33 TH [id number]) Special Tests Lumbar Spine Special Tests MOD OSW Test Results 26 PT-OP-Q Treatments Start: 06/13/22 14:35 Freq: Status: Active Protocol: Document 07/24/22 10:33 [facility] (Rec: 07/24/22 11:48 [facility] [id number]) Therapeutic Exercises Supine Exercises foam roller Supine Exercise Name added to HEP: core stability: 1.alt arm lifts 2.alt heel raises Side bilateral Equipment Used slim 4 blue foam roller Comments vc for TrA activation, no breathholding, slower pacing Standing Exercises hip flexor stretch Standing Exercise Name lunge at wall -hip flexor and calves Side bilateral Equipment Used handrail Reps/Minutes x30s ea Comments cue for neutral foot - positive feedback response hip hike Side bilateral Equipment Used 4 step, handrail Reps/Minutes 2x10 reps Comments RLE stance feels good hip extension Side bilateral Resistance Lvl 3 Tb (green) Equipment Used handrail, use 4 step for longer LLE Reps/Minutes 2x10 ea Comments vc for lumbar hyperextension, pt challenged w/ R DF and knee ext-used step Kitchen sink stretch Equipment Used Handrail Reps/Minutes 2 x 30 Comments good form, positive feedback response hip abduction Side bilateral Resistance Lvl 3 Tb (green) Equipment Used handrail, 4 step for longer LLE Reps/Minutes 2x10 ea Comments R>L stance leg challenging quad stretch Standing Exercise Name Reviewed Side bilateral Equipment Used QUENCHER OPERATOR prn Reps/Minutes 2x30s Comments cue for initial form; venessa knee pain today Other Exercises quadruped Other Exercise Name 1. alt UE reach 2. alt LE slide back Side bilateral Reps/Minutes 10 ea Comments added to HEP Self-Care/Home Management Treatment Education Patient Education Home Exercise Program Other Education Added to HEP: Core stability w / foam roller ex's: alt arm lifts, mini march/alt heel raises - HO given. PT-OP-R Modalities Start: 06/13/22 14:35 Freq: Status: Active Protocol: Document 07/18/22 15:20 [facility] (Rec: 07/18/22 18:04 [facility] [id number]) Hot Pack/Cold Pack Treatment Cold Pack Location L hip Patient Position Hooklying Treatment Duration (minutes) 10 PT-OP-T Assessment and Plan Start: 06/13/22 14:35 Freq: Status: Active Protocol: Document 07/24/22 10:33 [facility] (Rec: 07/24/22 11:48 NB [id number]) Physical Therapy Assessment Impairments Impairments Activity Tolerance,Pain Goals 2 Impairment Unable to sleep throughout the night Short Term Goal (STG) Pt will be able to sleep with 50 % less interruptions as a result of pain throughout the night. 06/26/22: Pt reports she awakes from pain as soon as she rolls onto L hip - woke up once last night. 07/18-sleeping has been better for the past few weeks re: pain but still awake d/t sleep issues STG Duration 07/25/22 Pompom Maker Goal (LTG) Pt will be able to sleep with 0 interruptions as a result of pain throughout the night. LTG Duration 09/05/22 1 Impairment Unable to tolerate prolonged sitting/standing Short Term Goal (STG) Pt will be able to sit/stand for > = 30 min with left hip pain < = 10. 07/18-can stand no greater than 15 to 20min 09/11 ; sitting uncomfortable w/o much time STG Duration 07/25/22 [facility] Goal (LTG) Pt will be able to sit/stand for > = 45 min with minimal to no left hip pain. LTG Duration 09/05/22 Assessment Summary Assessment Pt presents w/ ongoing L hip soreness today and requests to avoid manual therapy today. She demonstrates improved awareness posture with ambulation and ex's throughout session, and of lumbar hyperextension w/ hip extension ex's. She requies occasional cues for neutral foot positioning and gentle pain-free ROM. Quadruped core ex's modified to supine on foam roller due to pt's complaint of bilateral wrist pain even on fists. Dianna requires cues for TrA activation, breathholding and slower pacing. She has a positive feedback response to supine foam roller ex's for core stability and plans to purchase for home. Added to HEP: Core stability w/ foam roller ex's: alt arm lifts, mini march/alt heel raises - HO given. Ice offered end of session and declined. Physical Therapy Plan Frequency and Duration Frequency of Treatment 1-2x/wk Duration of treatment (weeks) 12 Plan of Care Start Date 06/13/22 Plan of Care End Date 09/05/22 Therapeutic Interventions Therapeutic Interventions Balance Training,Coordination Training,Gait Training,Home Exercise Program,Joint Mobilizations,Manual Therapy, Neuromuscular Re-education, Orthotic/Prosthetic Management ,Patient/Caregiver Education, Self-Care/Home Management, Sensory Integration,Soft Tissue Mobilization,Taping, Therapeutic Activities, Therapeutic Exercises Modalities Cold Pack/Ice Massage,Electric Stimulation,Hot Packs, Ultrasound Next Visit Focus/Plan Next Note Type Treatment Note Next Visit Plan reassess L hip soreness and new foam roller HEP POC: look at sitting position and manual to improve that
--- NOTE | 2022-07-26 12:05 | PT.OTN ---
Current Diagnoses Pain in left hip (07/26/22) Postlaminectomy syndrome, not elsewhere classified (07/26/22) Physical Therapy Treatment Note PT-OP-A Visit Information Start: 06/13/22 14:35 Freq: Status: Active Protocol: Document 07/26/22 09:30 [facility] (Rec: 07/26/22 10:18 [facility] [id number]) Out-Patient Physical Therapy Visit Information Visit Information Visit Type Treatment Note Visit Note 05/12 Visit Start Time 09:31 Visit Stop Time 10:15 Total Visit Minutes 44 Visit Number 12 Precautions Precautions [place] - L ear preferred PT-OP-B Current Condition Start: 06/13/22 14:35 Freq: Status: Active Protocol: Document 07/26/22 09:30 [facility] (Rec: 07/26/22 10:18 [facility] [id number]) Current Condition History of Current Condition Onset Date 01/02/23 History of Current Condition Pt reports scoliosis since childhood. Pt has had chronic LBP and hip pain for years. With recenet laminectomy and L MJ in the last two years. Pt has hx of bilateral ( laterally). Bilat. neuropathy / feet numb. Lateral LE pain is a little better since laminetomy ( 12/2021). Pt also c/o LBP both sides and thoracic spine. The moajority of pain is felt in the left ant/lateral hip. PT-OP-C Subjective Start: 06/13/22 14:35 Freq: Status: Active Protocol: Document 07/26/22 09:30 [facility] (Rec: 07/26/22 10:18 [facility] [id number]) OP-PT Subjective Patient Comments Patient Comments Today is a bad day, pain 6-7/ 10. Ice and stretching helps the most, heat seems to make worse. States her memory is poor and she often forgets to ice. Sticking to level walks /hikes. Doesn't like pools though verbalizes understanding of benefits of aquatic exercise. Some days can do 1-1 1/2mile walks, other times pain too extreme. Not doing Sujit stretch at home due to difficulty with set up, feeling she is going to fall off side of bed. PT-OP-J Posture/Palpation/Skin Start: 06/13/22 14:35 Freq: Status: Active Protocol: Document 06/13/22 14:35 TH (Rec: 06/13/22 16:33 TH [id number]) Posture Evaluation Comments Posture Comments Left LE longer since hip surgery ( pt wears lift in right shoe), concave left, right trunk ant.rot. , pelvic obliquity due to scoliosis left higher than right , right hip flexors tight PT-OP-K Range of Motion Start: 06/13/22 14:35 Freq: Status: Active Protocol: Document 06/13/22 14:35 TH (Rec: 06/13/22 16:33 TH [id number]) Lumbar Spine Range of Motion Lumbar Spine Active Comments Flex: limited Ext: WFL Rot r/l : limited PT-OP-L Special Tests Start: 06/13/22 14:35 Freq: Status: Active Protocol: Document 06/13/22 14:35 TH (Rec: 06/13/22 16:33 TH [id number]) Special Tests Lumbar Spine Special Tests MOD OSW Test Results 26 PT-OP-Q Treatments Start: 06/13/22 14:35 Freq: Status: Active Protocol: Document 07/26/22 09:30 [facility] (Rec: 07/26/22 10:18 [facility] [id number]) Cardio Equipment Elliptical Duration (Minutes) 4 Resistance 1 Other cues for neutral alignment, reported knee pain after a few min Recumbent Elliptical (Biodex) Duration (Minutes) 5 Resistance 3-5 Seat Position 4 Other Dycem under buttocks to prevent sliding. cues to push through heels Therapeutic Exercises Supine Exercises foam roller Supine Exercise Name core stability: 1.alt arm lifts 2.alt heel raises Side bilateral Equipment Used 6 FOAM ROLLER, 3 1/2 foam, towel roll under neck Comments vc for TrA activation, no breathholding, slower pacing hip flexor stretch Supine Exercise Name sujit position Comments horizontal on bed; patient preferred to off side, issued new handout Self-Care/Home Management Treatment Education Other Education use and benefits of 1/2 roll and full foam roller. Patient preferred 1/2 roll, given information for ordering. PT-OP-R Modalities Start: 06/13/22 14:35 Freq: Status: Active Protocol: Document 07/18/22 15:20 LR (Rec: 07/18/22 18:04 LR [id number]) Hot Pack/Cold Pack Treatment Cold Pack Location L hip Patient Position Hooklying Treatment Duration (minutes) 10 PT-OP-T Assessment and Plan Start: 06/13/22 14:35 Freq: Status: Active Protocol: Document 07/26/22 09:30 [facility] (Rec: 07/26/22 10:18 [facility] [id number]) Physical Therapy Assessment Impairments Impairments Activity Tolerance,Pain Goals 2 Impairment Unable to sleep throughout the night Short Term Goal (STG) Pt will be able to sleep with 50 % less interruptions as a result of pain throughout the night. 06/26/22: Pt reports she awakes from pain as soon as she rolls onto L hip - woke up once last night. 07/18-sleeping has been better for the past few weeks re: pain but still awake d/t sleep issues STG Duration 07/25/22 Skilled Nursing Goal (LTG) Pt will be able to sleep with 0 interruptions as a result of pain throughout the night. LTG Duration 09/05/22 1 Impairment Unable to tolerate prolonged sitting/standing Short Term Goal (STG) Pt will be able to sit/stand for > = 30 min with left hip pain < = 4/10. 07/18-can stand no greater than 15 to 20min 7/10 ; sitting uncomfortable w/o much time STG Duration 07/25/22 [employer] Operator Automatic Goal (LTG) Pt will be able to sit/stand for > = 45 min with minimal to no left hip pain. LTG Duration 09/05/22 Assessment Summary Assessment Patient preferred 1/2 roll to full foam roll 4 or 6, given information for purchasing. Also given written reminder about use of roling pin for self massage and updated HO for Sujit stretch, preferring end or horizontal on bed to hanging leg off side. Cues for neutral LE alignment with stretch. Liked elliptical as another option for exercise, though after a few minutes reported knee pain. Patient refused ice at end of session. Physical Therapy Plan Frequency and Duration Frequency of Treatment 1-2x/wk Duration of treatment (weeks) 12 Plan of Care Start Date 06/13/22 Plan of Care End Date 09/05/22 Therapeutic Interventions Therapeutic Interventions Balance Training,Coordination Training,Gait Training,Home Exercise Program,Joint Mobilizations,Manual Therapy, Neuromuscular Re-education, Orthotic/Prosthetic Management ,Patient/Caregiver Education, Self-Care/Home Management, Sensory Integration,Soft Tissue Mobilization,Taping, Therapeutic Activities, Therapeutic Exercises Modalities Cold Pack/Ice Massage,Electric Stimulation,Hot Packs, Ultrasound Next Visit Focus/Plan Next Note Type Treatment Note Next Visit Plan Continue PT per POC.
--- NOTE | 2022-08-01 16:17 | PT.OTN ---
Current Diagnoses Pain in left hip (08/01/22) Postlaminectomy syndrome, not elsewhere classified (08/01/22) Physical Therapy Treatment Note PT-OP-A Visit Information Start: 06/13/22 14:35 Freq: Status: Active Protocol: Document 08/01/22 13:37 NBM (Rec: 08/01/22 16:16 NB [id number]) Out-Patient Physical Therapy Visit Information Visit Information Visit Type Treatment Note Visit Note 06/12 Visit Start Time 13:35 Visit Stop Time 14:17 Total Visit Minutes 40 Visit Number 13 Number of SECURITY ADMINISTRATOR Visits 1 Precautions Precautions [facility] - L ear preferred PT-OP-B Current Condition Start: 06/13/22 14:35 Freq: Status: Active Protocol: Document 07/26/22 09:30 SAK (Rec: 07/26/22 10:18 SAK [id number]) Current Condition History of Current Condition Onset Date 01/02/23 History of Current Condition Pt reports scoliosis since childhood. Pt has had chronic LBP and hip pain for years. With recenet laminectomy and L MJ in the last two years. Pt has hx of bilateral ( laterally). Bilat. neuropathy / feet numb. Lateral LE pain is a little better since laminetomy ( 12/2021). Pt also c/o LBP both sides and thoracic spine. The moajority of pain is felt in the left ant/lateral hip. PT-OP-C Subjective Start: 06/13/22 14:35 Freq: Status: Active Protocol: Document 08/01/22 13:37 NBM (Rec: 08/01/22 16:16 NB [id number]) OP-PT Subjective Patient Comments Patient Comments Pt reports her Dr advised to discontinue PT and focus on HEP for the next two months then follow up with him. She states her 6 half foam roller arrived today. Pt felt fine after last visit. I don't ever feel great. Ice and stretching help - I don't have much luck with heat. I still get hot flashes. Pt is now using a platform next to bed to stretch front of hips and thighs in bed. PT-OP-J Posture/Palpation/Skin Start: 06/13/22 14:35 Freq: Status: Active Protocol: Document 06/13/22 14:35 (Rec: 06/13/22 16:33 TH [id number]) Posture Evaluation Comments Posture Comments Left LE longer since hip surgery ( pt wears lift in right shoe), concave left, right trunk ant.rot. , pelvic obliquity due to scoliosis left higher than right , right hip flexors tight PT-OP-K Range of Motion Start: 06/13/22 14:35 Freq: Status: Active Protocol: Document 06/13/22 14:35 TH (Rec: 06/13/22 16:33 TH [id number]) Lumbar Spine Range of Motion Lumbar Spine Active Comments Flex: limited Ext: WFL Rot r/l : limited PT-OP-L Special Tests Start: 06/13/22 14:35 Freq: Status: Active Protocol: Document 06/13/22 14:35 TH (Rec: 06/13/22 16:33 TH [id number]) Special Tests Lumbar Spine Special Tests MOD OSW Test Results 26 PT-OP-Q Treatments Start: 06/13/22 14:35 Freq: Status: Active Protocol: Document 08/01/22 13:37 NBM (Rec: 08/01/22 16:16 NBM [id number]) Cardio Equipment Recumbent Elliptical ([employer]) Duration (Minutes) 10 Resistance 3-5 Seat Position 4 Other Dycem under buttocks to prevent sliding. cues to push through heels Therapeutic Exercises Supine Exercises ITB stretch Supine Exercise Name ITB/TFL stretch - added to HEP Side bilateral Equipment Used w/ strap Comments L>R tightness; + feedback resposne foam roller Supine Exercise Name core stability: 1.alt arm lifts 2.alt heel raises 3. BKFO 4. arms/heel rais Side bilateral Equipment Used 6 1/2 foam, towel roll under neck Comments vc for TrA activation, no breathholding, slower pacing hip flexor stretch Supine Exercise Name discussed only - anthony position Side bilateral Comments pt using platform next to bed TrA Equipment Used 6 1/2 foam roller Reps/Minutes 10x3SH Comments self-monitoring palpating medial to ASIS Other Exercises hip hike Comments 1 x 10 Manual Therapy Treatment Soft Tissue Mobilization R calf Body Location R gastrocnemius and soleus Mobilization Type Instrument Assisted,Rolling, Other Comments SECURITY ADMINISTRATOR use of rolling pin to R gastroc and soleus. L hip Body Location L TFL/ITB, scar tissue, Quads Mobilization Type Myofascial Release,Rolling, Strumming,Other Comments self-STM rolling pin to quads, TFL/ITB SECURITY ADMINISTRATOR used rolling pin to L TFL/ ITB Self-Care/Home Management Treatment Education Patient Education Home Exercise Program Other Education Added to HEP: IT Band stretch w/ belt, rolling pin to ITB/ TFL - HO given. Encouraged pt in use of smart phone for tracking reminders - pt input reminder during session to use towel roll under neck with foam roller and to use Rolling Pin for self-STM to quads, TFL/ITB, and calves as needed. PT-OP-R Modalities Start: 06/13/22 14:35 Freq: Status: Active Protocol: Document 07/18/22 15:20 [facility] (Rec: 07/18/22 18:04 [facility] [id number]) Hot Pack/Cold Pack Treatment Cold Pack Location L hip Patient Position Hooklying Treatment Duration (minutes) 10 PT-OP-T Assessment and Plan Start: 06/13/22 14:35 Freq: Status: Active Protocol: Document 08/01/22 13:37 NB (Rec: 08/01/22 16:16 [facility] [id number]) Physical Therapy Assessment Goals 2 Impairment Unable to sleep throughout the night Short Term Goal (STG) Pt will be able to sleep with 50 % less interruptions as a result of pain throughout the night. 06/26/22: Pt reports she awakes from pain as soon as she rolls onto L hip - woke up once last night. 07/18-sleeping has been better for the past few weeks re: pain but still awake d/t sleep issues 08/01/22: Pt reports she wakes from pain each night. STG Duration 07/25/22 Correction Goal (LTG) Pt will be able to sleep with 0 interruptions as a result of pain throughout the night. LTG Duration 09/05/22 1 Impairment Unable to tolerate prolonged sitting/standing Short Term Goal (STG) Pt will be able to sit/stand for > = 30 min with left hip pain < = 10. 07/18-can stand no greater than 15 to 20min 09/11 ; sitting uncomfortable w/o much time 08/01: pt reports she can not sit/stand for long w/o pain STG Duration 07/25/22 Correction Goal (LTG) Pt will be able to sit/stand for > = 45 min with minimal to no left hip pain. LTG Duration 09/05/22 Assessment Summary Assessment Dianna reports Dr is monitoring lump in L quad distal to her surgical incision which she states feels like a bruise. Pt has no more visits scheduled and she plans to discharge from PT per Dr's guidance to do so with HEP and follow up with him in two months. Treatment focus on solidifying HEP and manual therapy to L hip. Pt requires cues for Transverse abdominus focus and slower pacing with foam roller ex's and demonstrates improved performance and self-awareness with cueing and repetition. Pt is challenged to maintain TrA activation on 03/06 foam roller with marching and so is encouraged in heel raises with alternate arm lifts instead. Encouraged pt in use of smart phone for tracking reminders - pt input reminder during session to use towel roll under neck with foam roller and to use Rolling Pin for self-STM to quads, TFL/ITB , and calves as needed. Added to HEP: IT Band stretch w/ belt, rolling pin to ITB/TFL - HO given. Physical Therapy Plan Frequency and Duration Frequency of Treatment 1-2x/wk Duration of treatment (weeks) 12 Plan of Care Start Date 06/13/22 Plan of Care End Date 09/05/22 Therapeutic Interventions Therapeutic Interventions Balance Training,Coordination Training,Gait Training,Home Exercise Program,Joint Mobilizations,Manual Therapy, Neuromuscular Re-education, Orthotic/Prosthetic Management ,Patient/Caregiver Education, Self-Care/Home Management, Sensory Integration,Soft Tissue Mobilization,Taping, Therapeutic Activities, Therapeutic Exercises Modalities Cold Pack/Ice Massage,Electric Stimulation,Hot Packs, Ultrasound Next Visit Focus/Plan Next Note Type Treatment Note Next Visit Plan Consider D/C per pt request.
--- NOTE | 2022-08-01 17:58 | PT.OPDS ---
Current Diagnoses Pain in left hip (08/01/22) Postlaminectomy syndrome, not elsewhere classified (08/01/22) Visit Care Team Role Provider Type Clint Pat MD Family Provider Physician Primary Care Provider Specialty: Family Practice Address: [address] [place] [address], [id number] Email: [email or web address] Hebert MD Attending Provider Non-Staff Referring Provider Specialty: Neurosurgery Address: [address] [place] [address], [phone] Email: Visit Number Visit Number 13 Discharge Summary PT-OP-B Current Condition Start: 06/13/22 14:35 Freq: Status: Active Protocol: Document 07/26/22 09:30 SAK (Rec: 07/26/22 10:18 SAK [id number]) Current Condition History of Current Condition Onset Date 01/02/23 History of Current Condition Pt reports scoliosis since childhood. Pt has had chronic LBP and hip pain for years. With recenet laminectomy and L MJ in the last two years. Pt has hx of bilateral ( laterally). Bilat. neuropathy / feet numb. Lateral LE pain is a little better since laminetomy ( 12/2021). Pt also c/o LBP both sides and thoracic spine. The moajority of pain is felt in the left ant/lateral hip. PT-OP-C Subjective Start: 06/13/22 14:35 Freq: Status: Active Protocol: Document 08/01/22 13:37 NBM (Rec: 08/01/22 16:16 NBM [id number]) OP-PT Subjective Patient Comments Patient Comments Pt reports her Dr advised to discontinue PT and focus on HEP for the next two months then follow up with him. She states her 6 half foam roller arrived today. Pt felt fine after last visit. I don't ever feel great. Ice and stretching help - I don't have much luck with heat. I still get hot flashes. Pt is now using a platform next to bed to stretch front of hips and thighs in bed. PT-OP-J Posture/Palpation/Skin Start: 06/13/22 14:35 Freq: Status: Active Protocol: Document 06/13/22 14:35 TH (Rec: 06/13/22 16:33 TH [id number]) Posture Evaluation Comments Posture Comments Left LE longer since hip surgery ( pt wears lift in right shoe), concave left, right trunk ant.rot. , pelvic obliquity due to scoliosis left higher than right , right hip flexors tight PT-OP-K Range of Motion Start: 06/13/22 14:35 Freq: Status: Active Protocol: Document 06/13/22 14:35 TH (Rec: 06/13/22 16:33 TH [id number]) Lumbar Spine Range of Motion Lumbar Spine Active Comments Flex: limited Ext: WFL Rot r/l : limited PT-OP-L Special Tests Start: 06/13/22 14:35 Freq: Status: Active Protocol: Document 06/13/22 14:35 TH (Rec: 06/13/22 16:33 TH [id number]) Special Tests Lumbar Spine Special Tests MOD OSW Test Results 26 PT-OP-T Assessment and Plan Start: 06/13/22 14:35 Freq: Status: Active Protocol: Document 08/01/22 17:56 [facility] (Rec: 08/01/22 17:58 [facility] [id number]) Physical Therapy Assessment Goals 2 Impairment Unable to sleep throughout the night Short Term Goal (STG) Pt will be able to sleep with 50 % less interruptions as a result of pain throughout the night. 06/26/22: Pt reports she awakes from pain as soon as she rolls onto L hip - woke up once last night. 07/18-sleeping has been better for the past few weeks re: pain but still awake d/t sleep issues 08/01/22: Pt reports she wakes from pain each night. STG Duration 07/25/22 Nursing Home Goal (LTG) Pt will be able to sleep with 0 interruptions as a result of pain throughout the night. LTG Duration 09/05/22 1 Impairment Unable to tolerate prolonged sitting/standing Short Term Goal (STG) Pt will be able to sit/stand for > = 30 min with left hip pain < = 4/10. 07/18-can stand no greater than 15 to 20min 09/11 ; sitting uncomfortable w/o much time 08/01: pt reports she can not sit/stand for long w/o pain STG Duration 07/25/22 Nursing Home Goal (LTG) Pt will be able to sit/stand for > = 45 min with minimal to no left hip pain. LTG Duration 09/05/22 Assessment Summary Assessment Pt is DC from PT today d/t cont pain and MD recommending that pt stop PT at this time. She is to cont HEP and did well with HEP exercises today. Pt given HEP handout for exercises as needed. She does cotnt o have pain during day to day activity. Physical Therapy Plan Discharge Physical Therapy Discharge Reasons Patient Request Discharge Comments pt MD requested pt stop PT and just do HEP at this time
== END 2022-11-07 11:41 ==
LOC: PHYS 13:30
PROVIDERS: Family Provider Family Medicine; PCP Family Medicine; Referring Provider Neurological Surgery; Visit Provider Neurological Surgery
DX: M25.552 Pain in left hip (principal); M96.1 Postlaminectomy syndrome, not elsewhere classified
CPT/HCPCS: 97110; 97112; 97140; 97161; 97535

== ENCOUNTER → 2023-02-21 16:02 | Outpatient (CLI) | payer MEDICARE, OTHER, SELFPAY ==
[2021-02-11 12:17] VITALS: BMI 27.4
--- NOTE | 2023-02-21 16:04 | DI.MG.S_ITS ---
BILATERAL DIGITAL SCREENING MAMMOGRAM 3D/2D WITH CAD: 02/21/2023 CLINICAL: Routine screening. Family history of breast cancer. Comparison is made to exams dated: 12/22/2021 mammogram, 12/08/2020 mammogram, and 04/09/2018 mammogram - [facility]. There are scattered areas of fibroglandular density in both breasts (category b / 25%-50% glandular tissue). Current study was also evaluated with a Computer Aided Detection (CAD) system. There are benign vascular calcifications in the right breast. No significant masses, calcifications, or other findings are seen in either breast. There has been no significant interval change. IMPRESSION: BENIGN There is no mammographic evidence of malignancy. A 1 year screening mammogram is recommended. Based on the Tyrer Cuzick model (a risk assessment model) the patient's lifetime risk is 9.0% and her 10 year risk is 7.4%. According to the ACR, ACS, and NCCN guidelines, an annual breast MRI exam along with mammogram is recommended if the patient's lifetime risk is 20% or greater. This exam was interpreted at Station ID: [id number]. NOTE: For mammograms, a report in lay terms will be sent to the patient. Approximately 15% of breast malignancies will not be visualized mammographically. In the management of a palpable breast mass, a negative mammogram must not discourage biopsy of a clinically suspicious lesion. Electronically Signed By: Raheem ellis/jesus:02/22/2023 08:27:13 letter sent: Normal Exam ACR BI-RADS Category 2: Benign Finding(s) [id number]
== END ==
PROVIDERS: Family Provider Family Medicine; PCP Family Medicine; Referring Provider Family Medicine; Visit Provider Family Medicine
DX: Z12.31 Encounter for screening mammogram for malignant neoplasm of breast (principal); Z80.3 Family history of malignant neoplasm of breast
CPT/HCPCS: 77063; 77067

== ENCOUNTER → 2023-04-02 07:35 | Outpatient (CLI) | payer MEDICARE, OTHER, SELFPAY ==
[2021-02-11 12:17] VITALS: BMI 27.4
[2023-04-02 09:11] LABS: Add Manual Diff / Slide Review NO; Basophils Absolute Auto 100 /uL (0-100); Eosinophils Absolute Auto 200 /uL (0-450); Eosinophils Percent Auto 4.2 % (2-4); Hematocrit 42.1 % (36-46); Hemoglobin 14.3 g/dL (12.0-16.0); Lymphocytes Absolute Auto 1600 /uL (1100-4500); Lymphocytes Percent Auto 28.1 % (25-40); Mean Corpuscular HGB Conc 33.9 % (30-36); Mean Corpuscular Hemoglobin 29.8 PG (26-34); Mean Corpuscular Volume 87.7 fL (80-100); Monocytes Absolute Auto 400 /uL (0-900); Monocytes Percent Auto 7.1 % (3-14); Neutrophils Absolute Auto 3300 /uL (1500-7000); Neutrophils Percent Auto 59.6 % (50-75); Platelet Count 289 X10^3/uL (150-400); White Blood Cell Count 5.6 X10^3/uL (4.5-11.0)
[2023-04-02 09:16] LABS: Hemoglobin A1C% w Est Avg Glu 5.5 % (4.0-6.0)
[2023-04-02 09:40] LABS: Alanine Aminotransferase 17 IU/L (<35); Albumin 4.3 g/dL (3.5-5.0); Albumin Globulin Ratio 1.4 (1.0-2.8); Alkaline Phosphatase 99 U/L (38-126); Aspartate Aminotransferase 22 IU/L (14-36); BUN Creatinine Ratio 21.8 (6-22); Bilirubin Total 0.8 mg/dL (0.2-1.3); Blood Urea Nitrogen 17 mg/dL (7-17); Calcium 10.1 mg/dL (8.4-10.2); Carbon Dioxide 24 mmol/L (22-32); Chloride 105 mmol/L (98-107); Cholesterol 253 mg/dL (140-199); Estimated Glomerular Filt Rate > 60 mL/min (>60); Glucose 88 mg/dL (80-110); HDL Cholesterol 51 mg/dL (40-60); HEMOLYSIS < 15 (0-50); LDL Cholesterol Calculated 172 mg/dL (<100); Potassium 4.5 mmol/L (3.4-5.1); Sodium 138 mmol/L (137-145); Total Protein 7.3 g/dL (6.3-8.2); Triglycerides 151 mg/dL (35-150)
[2023-04-02 10:07] LABS: Vitamin D 25 Hydroxy (D3) 33.2 ng/mL (30.0-100.0)
== END ==
PROVIDERS: Family Provider Family Medicine; PCP Family Medicine; Referring Provider Family Medicine; Visit Provider Family Medicine
DX: M79.7 Fibromyalgia (principal); R73.03 Prediabetes; E78.00 Pure hypercholesterolemia, unspecified; D64.9 Anemia, unspecified
CPT/HCPCS: 36415; 80053; 80061; 82306; 83036; 85025

== ENCOUNTER → 2023-04-27 09:46 | Outpatient (CLI) | payer MEDICARE, OTHER, SELFPAY ==
[2021-02-11 12:17] VITALS: BMI 27.4
--- NOTE | 2023-04-27 09:47 | DI.CT.S_ITS ---
PROCEDURE: CT LUNG LOW DOSE SCREENING INDICATIONS: Chronic smoking history TECHNIQUE: Noncontrast 2.0-2.5 mm thick sections acquired from the pulmonary apices to the posterior costophrenic angles. 7 mm thick axial MIP, and 5 mm coronal and sagittal reformats were then acquired. For radiation dose reduction, the following was used: automated exposure control, adjustment of mA and/or kV according to patient size. COMPARISON: [facility], CT, CT LUNG LOW DOSE SCREENING, 10/28/2021, 11:47. FINDINGS: Image quality: Diagnostic. Lower Neck: No enlarged lymph nodes. Thyroid: No thyroid nodules which require sonographic follow up, per consensus guidelines. Axillae: No enlarged lymph nodes. Chest Wall: Unremarkable. Bones: Spondylitic changes in thoracic lumbar spine. Lungs and Pleura: Stable 5 mm nodule in the right middle lobe (series 3, image 200). There are multiple small subpleural nodular densities, primarily involving upper lobes bilaterally, unchanged, most likely pleural parenchymal scarring. Subpleural scars and atelectasis are seen in right middle lobe and lingula. No acute pulmonary opacities. No pneumothorax or pleural effusions. Heart: Heart size is normal. No pericardial effusion. Thoracic Vessels: The aorta and pulmonary arteries demonstrate normal size. Mediastinum and Katie: No enlarged lymph nodes. Esophagus: No wall thickening. No hiatal hernia. Upper Abdomen: Visualized upper abdomen solid organs and bowel loops appear normal. IMPRESSION: Stable 5 mm nodule in right middle lobe. LUNG-RADS 2; continue annual screening lung CT in 12 months. Dictated by: Cyrus Hernandez M.D. on 04/27/2023 at 11:18 Approved by: Cyrus Hernandez M.D. on 04/27/2023 at 11:22
== END ==
PROVIDERS: Family Provider Family Medicine; PCP Family Medicine; Referring Provider Family Medicine; Visit Provider Family Medicine
DX: Z12.2 Encounter for screening for malignant neoplasm of respiratory organs; R91.1 Solitary pulmonary nodule
CPT/HCPCS: 71271

== ENCOUNTER → 2024-03-17 14:47 | Outpatient (CLI) | payer MEDICARE, OTHER, SELFPAY ==
[2021-02-11 12:17] VITALS: BMI 27.4
--- NOTE | 2024-03-17 14:49 | DI.RAD.S_ITS ---
PROCEDURE: XR CERVICAL SPINE 2V OR 3V INDICATIONS: neck and upper left arm pain TECHNIQUE: Three views of the cervical spine were acquired. COMPARISON: None. FINDINGS: Cervical spine curvature and alignment: Slight reversal of the cervical lordotic curve suggesting muscle spasm. Bones: There are no osseous abnormalities. Disc spaces: Moderate C4-5 C5-6 and mild C6-7 and C7-T1 degenerative disc disease noted. Soft tissues: No soft tissue swelling, calcification or mass. IMPRESSION: Degeneration. Dictated by: Earnest Wick M.D. on 03/18/2024 at 9:26 Approved by: Earnest Wick M.D. on 03/18/2024 at 9:27
== END ==
PROVIDERS: Family Provider Family Medicine; PCP Family Medicine; Referring Provider Family Medicine; Visit Provider Family Medicine
DX: M50.321 Other cervical disc degeneration at C4-C5 level (principal); R73.03 Prediabetes; E78.00 Pure hypercholesterolemia, unspecified; M79.622 Pain in left upper arm
CPT/HCPCS: 72040

== ENCOUNTER → 2024-03-18 09:37 | Outpatient (CLI) | payer MEDICARE, OTHER, SELFPAY ==
[2021-02-11 12:17] VITALS: BMI 27.4
[2024-03-18 10:39] LABS: Add Manual Diff / Slide Review NO; Basophils Absolute Auto 0 /uL (0-100); Basophils Percent Auto 0.8 % (0-2); Eosinophils Absolute Auto 200 /uL (0-450); Eosinophils Percent Auto 3.7 % (2-4); Hematocrit 43.5 % (36-46); Hemoglobin 14.7 g/dL (12.0-16.0); Lymphocytes Absolute Auto 1200 /uL (1100-4500); Lymphocytes Percent Auto 23.3 % (25-40); Mean Corpuscular HGB Conc 33.8 % (30-36); Mean Corpuscular Hemoglobin 29.4 PG (26-34); Mean Corpuscular Volume 87.1 fL (80-100); Monocytes Absolute Auto 400 /uL (0-900); Monocytes Percent Auto 8.5 % (3-14); Neutrophils Absolute Auto 3200 /uL (1500-7000); Neutrophils Percent Auto 63.7 % (50-75); Platelet Count 294 X10^3/uL (150-400); Red Blood Cell Count 4.99 X10^6/uL (4.0-5.2); Red Cell Distribution Width 13.9 % (11.6-14.8); White Blood Cell Count 5.1 X10^3/uL (4.5-11.0)
[2024-03-18 11:02] LABS: Alanine Aminotransferase 21 IU/L (<35); Albumin 4.6 g/dL (3.5-5.0); Albumin Globulin Ratio 1.7 (1.0-2.8); Alkaline Phosphatase 84 U/L (38-126); Aspartate Aminotransferase 27 IU/L (14-36); BUN Creatinine Ratio 21.4 (6-22); Bilirubin Total 0.6 mg/dL (0.2-1.3); Blood Urea Nitrogen 18 mg/dL (7-17); Carbon Dioxide 26 mmol/L (22-32); Chloride 105 mmol/L (98-107); Cholesterol 306 mg/dL (140-199); Estimated Glomerular Filt Rate > 60 mL/min (>60); Globulin 2.7 g/dL (1.7-4.1); Glucose 92 mg/dL (80-110); HDL Cholesterol 49 mg/dL (40-60); HEMOLYSIS < 15 (0-50); LDL Cholesterol Calculated 218 mg/dL (<100); Potassium 4.6 mmol/L (3.4-5.1); Sodium 139 mmol/L (137-145); Total Protein 7.3 g/dL (6.3-8.2); Triglycerides 197 mg/dL (35-150)
[2024-03-18 11:20] LABS: Hemoglobin A1C% w Est Avg Glu 5.5 % (4.0-6.0)
[2024-03-18 11:24] LABS: Vitamin D 25 Hydroxy (D3) 38.7 ng/mL (30.0-100.0)
[2024-03-18 11:33] LABS: TSH w/ Reflex to FT4 1.83 uIU/mL (0.47-4.68)
[2024-03-18 11:51] LABS: Vitamin B12 Reflex MMA if <400 579 pg/mL (239-931)
== END ==
PROVIDERS: Family Provider Family Medicine; PCP Family Medicine; Referring Provider Family Medicine; Visit Provider Family Medicine
DX: R73.03 Prediabetes (principal); R53.83 Other fatigue; E78.00 Pure hypercholesterolemia, unspecified
CPT/HCPCS: 36415; 80053; 80061; 82306; 82607; 83036; 83735; 84443; 85025

== ENCOUNTER → 2024-03-20 08:28 | Outpatient (CLI) | payer MEDICARE, OTHER, SELFPAY ==
[2021-02-11 12:17] VITALS: BMI 27.4
--- NOTE | 2024-03-20 | DI.MG.S_ITS ---
BILATERAL DIGITAL SCREENING MAMMOGRAM 3D/2D WITH CAD: 03/20/2024 CLINICAL: Routine screening. Family history of breast cancer. Comparison is made to exams dated: 02/21/2023 mammogram, 12/22/2021 mammogram, 12/08/2020 mammogram, 04/09/2018 mammogram, and 11/23/2016 mammogram - [facility]. There are scattered areas of fibroglandular density (category b / 25%-50% glandular tissue). Current study was also evaluated with a Computer Aided Detection (CAD) system. There are benign vascular calcifications in the right breast. No significant masses, calcifications, or other findings are seen in either breast. There has been no significant interval change. IMPRESSION: BENIGN There is no mammographic evidence of malignancy. A 1 year screening mammogram is recommended. Based on the Tyrer Cuzick model (a risk assessment model) the patient's lifetime risk is 8.5% and her 10 year risk is 7.7%. According to the ACR, ACS, and NCCN guidelines, an annual breast MRI exam along with mammogram is recommended if the patient's lifetime risk is 20% or greater. This exam was interpreted at Station ID: [id number]. NOTE: For mammograms, a report in lay terms will be sent to the patient. Approximately 15% of breast malignancies will not be visualized mammographically. In the management of a palpable breast mass, a negative mammogram must not discourage biopsy of a clinically suspicious lesion. Electronically Signed By: Calderon longo/jesus:03/20/2024 17:46:53 letter sent: Normal Exam ACR BI-RADS Category 2: Benign
== END ==
PROVIDERS: Family Provider Family Medicine; PCP Family Medicine; Referring Provider Family Medicine; Visit Provider Family Medicine
DX: Z12.31 Encounter for screening mammogram for malignant neoplasm of breast (principal); R92.1 Mammographic calcification found on diagnostic imaging of breast; Z80.3 Family history of malignant neoplasm of breast
CPT/HCPCS: 77063; 77067

== ENCOUNTER → 2024-04-27 12:46 | Outpatient (CLI) | payer MEDICARE, OTHER, SELFPAY ==
[2021-02-11 12:17] VITALS: BMI 27.4
--- NOTE | 2024-04-27 12:47 | DI.CT.S_ITS ---
PROCEDURE: CT LUNG LOW DOSE SCREENING INDICATIONS: lung cancer screening TECHNIQUE: Noncontrast 2.0-2.5 mm thick sections acquired from the pulmonary apices to the posterior costophrenic angles. 7 mm thick axial MIP, and 5 mm coronal and sagittal reformats were then acquired. For radiation dose reduction, the following was used: automated exposure control, adjustment of mA and/or kV according to patient size. COMPARISON: [facility], CT, CT LUNG LOW DOSE SCREENING, 10/28/2021, 11:47. [facility], CT, CT LUNG LOW DOSE SCREENING, 04/27/2023, 9:56. FINDINGS: Image quality: Diagnostic. Lower Neck: No enlarged lymph nodes. Thyroid: No thyroid nodules which require sonographic follow up, per consensus guidelines. Axillae: No enlarged lymph nodes. Chest Wall: Unremarkable. Bones: Degenerative change. No lytic or blastic bony lesions. No compression fractures.. Lungs and Pleura: No pneumothorax or pleural effusions. As before, stable 5 mm pulmonary nodule, inferior right middle lobe, current image 209 of series 3 and previous image 200 of series 3. It is stable as well compared to 202. Reference initial image 203 of series 2. Additionally, there is a stable nodule present in the anterior basal segment of the left lower lobe on previous image 219 and current image 225. It was not commented on previously, measuring approximately 3 x 6 mm. It is stable dating back to 2021. Reference initial image 224 of series 3. It has an appearance suggesting a scar. There is also stable lateral left apical pleural based pulmonary nodule measuring 8 x 6 mm. Reference previous image 64 of series 3 and current image 66 of series 3. It is unchanged from 2022. Reference initial image 60 of series 3. No new or increasing pulmonary nodules are identified. Heart: Heart size is normal. No pericardial effusion. Thoracic Vessels: The aorta and pulmonary arteries demonstrate normal size. Mediastinum and Katie: No enlarged lymph nodes. Esophagus: No wall thickening. No hiatal hernia. Upper Abdomen: Visualized upper abdomen solid organs and bowel loops appear normal. IMPRESSION: Multiple pulmonary nodules are stable since 2021. No suspicious pulmonary nodules. LUNG-RADS 1; continued annual screening, if eligible. Clinically Significant Non-pulmonary Findings: None. Dictated by: Germain Vargas M.D. on 04/27/2024 at 14:23 Approved by: Germain Vargas M.D. on 04/27/2024 at 14:33
== END ==
PROVIDERS: Family Provider Family Medicine; PCP Family Medicine; Referring Provider Family Medicine; Visit Provider Family Medicine
DX: Z87.891 Personal history of nicotine dependence (principal); Z12.2 Encounter for screening for malignant neoplasm of respiratory organs; R91.8 Other nonspecific abnormal finding of lung field
CPT/HCPCS: 71271

== ENCOUNTER → 2024-06-26 09:57 | Outpatient (CLI) | payer MEDICARE, OTHER, SELFPAY ==
[2021-02-11 12:17] VITALS: BMI 27.4
== END ==
PROVIDERS: Family Provider Family Medicine; PCP Family Medicine; Referring Provider Family Medicine; Visit Provider Family Medicine
DX: M79.622 Pain in left upper arm (principal); R73.03 Prediabetes; E78.00 Pure hypercholesterolemia, unspecified
CPT/HCPCS: 95886; 95909

== ENCOUNTER → 2024-09-22 07:07 | Outpatient (CLI) | payer MEDICARE, OTHER, SELFPAY ==
[2021-02-11 12:17] VITALS: BMI 27.4
--- NOTE | 2024-09-22 07:09 | DI.MRI.S_ITS ---
PROCEDURE: MR HEAD/BRAIN WO/W CON INDICATIONS: Persistent headache; dizziness TECHNIQUE: Noncontrast axial T1 spin echo, axial T2 fast spin echo, sagittal and axial FLAIR, coronal T2 fast spin echo, axial gradient echo, axial diffusion and ADC through the brain. After the administration of contrast, axial and coronal and sagittal T1 spin echo with fat saturation through the brain. COMPARISON: None. FINDINGS: Image quality: Excellent. CSF spaces: Basal cisterns are patent. No extra-axial fluid collections. Ventricles are normal in size and shape. Brain: No midline shift. No intracranial bleeds or masses. No abnormal intracranial enhancement. There is cerebral volume loss for age. There is periventricular white matter chronic small vessel ischemic change. The brainstem appears normal. Diffusion-weighted images demonstrate no acute infarct. No chronic ischemic insults. Normal intravascular flow voids are present. Skull and face: Calvarial marrow is normal in signal. Orbits appear normal. Sinuses: Sinuses and mastoids appear clear. IMPRESSION: 1. No acute intracranial process. 2. Mild atrophy and chronic microvascular ischemic changes. Dictated by: Jocelynn Mcbride M.D. on 09/22/2024 at 16:33 Approved by: Jocelynn Mcbride M.D. on 09/22/2024 at 16:34
--- NOTE | 2024-09-22 07:37 | DI.MRI.S_ITS ---
PROCEDURE: MR ANGIO NECK W CON INDICATIONS: dizziness,headaches TECHNIQUE: Axial and sagittal TruFISP through the neck. Coronal dynamic MRA after the administration of contrast in the arterial and venous phases, with rotating 3- dimensional maximum intensity projection (MIP) reformats constructed from subtraction images. COMPARISON: [facility], MR, MR HEAD/BRAIN WO/W CON, 09/22/2024, 7:09. FINDINGS: Image quality: Excellent. Carotid system: Great vessels demonstrate a conventional anatomy as they arise from the aortic arch. The origins of the common carotid arteries appear normal. The calibers and courses of the common carotid arteries are likewise normal. The carotid bifurcations appear normal bilaterally. The internal carotid arteries are widely patent up to the [place]. Posterior circulation: The origins of the vertebral arteries are unremarkable. The more superior portions of the vertebral arteries demonstrate normal course and caliber. Vertebral arteries join to form a normal appearing basilar artery. Miscellaneous: Subclavian arteries are patent throughout. Pre-contrast images through the neck demonstrate no soft tissue abnormalities. IMPRESSION: No areas of hemodynamically significant stenosis, vascular occlusion or aneurysmal dilation within the neck vasculature. Any quantitative measurements of stenosis were performed using NASCET criteria. Dictated by: Jocelynn Mcbride M.D. on 09/22/2024 at 16:34 Approved by: Jocelynn Mcbride M.D. on 09/22/2024 at 16:36
[2024-09-24 10:18] LABS: Blood Urea Nitrogen 18 mg/dL (7-17); Calcium 10.1 mg/dL (8.4-10.2); Carbon Dioxide 27 mmol/L (22-32); Chloride 106 mmol/L (98-107); Cholesterol 302 mg/dL (140-199); Estimated Glomerular Filt Rate > 60 mL/min (>60); Glucose 97 mg/dL (70-99); HDL Cholesterol 51 mg/dL (40-60); HEMOLYSIS < 15 (0-50); Potassium 4.5 mmol/L (3.4-5.1); Sodium 141 mmol/L (137-145); Triglycerides 246 mg/dL (35-150)
== END ==
LOC: MRI 07:08
PROVIDERS: Family Provider Family Medicine; PCP Family Medicine; Referring Provider Family Medicine; Visit Provider Physician Assistant
DX: R51.9 Headache, unspecified (principal); R42 Dizziness and giddiness; H57.00 Unspecified anomaly of pupillary function; E78.2 Mixed hyperlipidemia; Z82.3 Family history of stroke
CPT/HCPCS: 36415; 70549; 70553; 80048; 80061; A9579

== ENCOUNTER → 2025-02-24 09:11 | Outpatient (CLI) | payer MEDICARE, OTHER, SELFPAY ==
[2024-11-19 10:11] VITALS: BMI 27.4
--- NOTE | 2025-02-24 09:14 | DI.MRI.S_ITS ---
PROCEDURE: MR LUMBAR SPINE WO CON INDICATIONS: Post Lami Syndrome TECHNIQUE: Noncontrast sagittal T1 spin echo and T2 fast echo, sagittal STIR, and T2 fast spin echo through the lumbar spine. In cases with scoliosis, additional coronal T2 fast spin echo may be performed. COMPARISON: [facility], MR, MR LUMBAR SPINE WITHOUT CONTRAST, 08/16/2020, 17:38. FINDINGS: Image quality: Excellent Moderate levoscoliosis of the lumbar spine, centered at L3. There is mild rightward lateral listhesis L1 on L2, L2 on L3, and mild leftward lateral listhesis of L3 on L4. Grade 1 anterolisthesis of L2 on L3, L3 on L4, and L5-S1. Vertebral body height of the lumbar spine are well maintained. Multilevel fibrovascular endplate change, most pronounced and mild at L1-2. Multilevel disc bulge and disc desiccation. Conus terminates at the level of T12-L1, and is unremarkable. Right neural foraminal stenosis: Mild at T10-T11, L2-L3, severe at L3-4, mild at L4-5, and L5-S1. Left neural foraminal stenosis: Mild at L1-2, L2-3, L3-4, severe at L4-5, mild at L5-S1. T11-T12: Moderate bilateral facet arthropathy. Disc bulge. Mild central canal stenosis. T12-L1: Mild disc bulge. Mild bilateral facet arthropathy. No central canal stenosis. L1-2: Mild disc bulge. Mild bilateral facet arthropathy. Mild central canal stenosis. L2-3: Severe right, moderate left facet arthropathy. Disc bulge. Mild to moderate central canal stenosis. L3-4: Severe right, moderate left facet arthropathy. Posterior disc uncovering. Moderate to severe central canal stenosis. L4-5: Severe bilateral facet arthropathy. Disc bulge. Mild central canal stenosis. L5-S1: Severe bilateral facet arthropathy. Posterior disc uncovering. No central canal stenosis. Visualized sacrum is intact. Minimally complex right renal cyst. Multiple peripelvic left renal cyst. Nodular thickening of the left adrenal gland. IMPRESSION: 1. Multilevel degenerative changes of the lumbar spine, most pronounced at L3-4, where there is moderate to severe central canal stenosis, and severe right neural foraminal stenosis, unchanged from prior exam. 2. Severe left neural foraminal stenosis at L4-5, progressed. Dictated by: Tiffani Melgar M.D. on 02/24/2025 at 11:44 Approved by: Tiffani Melgar M.D. on 02/24/2025 at 11:55
== END ==
LOC: MRI 09:12
PROVIDERS: Family Provider Family Medicine; PCP Family Medicine; Referring Provider Physical Medicine & Rehabilitation; Visit Provider Physical Medicine & Rehabilitation
DX: M47.26 Other spondylosis with radiculopathy, lumbar region (principal); M47.27 Other spondylosis with radiculopathy, lumbosacral region; M48.061 Spinal stenosis, lumbar region without neurogenic claudication; M48.07 Spinal stenosis, lumbosacral region; Z98.890 Other specified postprocedural states
CPT/HCPCS: 72148